=== PATIENT | female | born 1935 | race Two or more races ===

== ENCOUNTER 2022-02-20 19:11 | Inpatient (IN) | payer BC ==
[~2022-02-20] VITALS: Ht 165.1 cm; Wt 74.8 kg
--- NOTE | 2022-02-20 19:23 | NUR ---
[id number] FROM HOME C/O GLF FROM TRIP & LLE PAIN. LLE SHORTENGING & EXTERNAL ROTATION NOTED. -HEAD TRAUMA, -KO. PT AAOX3. TOLERATING R/A WELL WITH NO RESP DISTRESS. SAFETY MEASURES IN PLACE. CONNECTED PT TO POX AND MONITOR.
--- NOTE | 2022-02-20 19:35 | NUR ---
ALONSO [phone] DAUGHTER
[2022-02-20] MEDS ORDERED: ONDANSETRON HCL/PF 4 MG/2 ML VIAL IVP ONE (20:00)
[2022-02-20] MEDS ORDERED: IV NS 0.9% 500 ML BAG IV ONE (20:00)
[2022-02-20] MEDS ORDERED: MORPHINE SULFATE INJ 2 MG/ML DISP.SYRIN IV ONE (20:00)
--- NOTE | 2022-02-20 20:01 | NUR ---
covid swab done
--- NOTE | 2022-02-20 20:10 | NUR ---
MOVE SHEET SUBMITTED.
[2022-02-20] MEDS ORDERED: ONDANSETRON HCL/PF 4 MG/2 ML VIAL ONE (20:19)
[2022-02-20] MEDS ORDERED: MORPHINE SULFATE INJ 4 MG/ML DISP.SYRIN ONE (20:19)
[2022-02-20 20:26] LABS: BASOPHILS % (AUTO) 0.4 % (0.0-2.0); EOSINOPHILS % (AUTO) 0.3 % (0.0-6.0); HEMATOCRIT 31 % (33-45); HEMOGLOBIN 9.9 g/dL (11.5-14.8); LYMPHOCYTES # (AUTO) 0.6 K/uL (0.8-4.8); LYMPHOCYTES % (AUTO) 5.5 % (20.0-44.0); MEAN CORPUSCULAR HGB CONC 32 g/dl (31.0-36.0); MEAN CORPUSCULAR VOLUME 86 fL (82-100); MONOCYTES # (AUTO) 0.8 K/uL (0.1-1.30); NEUTROPHILS # (AUTO) 9.3 K/uL (1.8-8.9); NEUTROPHILS % (AUTO) 86.8 % (43.0-81.0); PLATELET COUNT (AUTO) 410 K/uL (150-450); RED BLOOD CELL COUNT(AUTO) 3.57 MIL/uL (4.0-5.2); WHITE BLOOD COUNT (AUTO) 10.7 K/uL (4.3-11.0)
[2022-02-20 20:50] LABS: CALCIUM, SERUM 8.7 mg/dL (8.5-10.1); CREATININE 0.7 mg/dL (0.6-1.3); POTASSIUM 4.3 mmol/L (3.5-5.1)
[2022-02-20 20:56] LABS: ALBUMIN 1.6 g/dL (3.4-5.0); BILIRUBIN,DIRECT 0.2 mg/dL (0.0-0.2); BILIRUBIN,TOTAL 0.4 mg/dL (0.2-1.0); TOTAL PROTEIN, SERUM 6.4 g/dL (6.4-8.2)
--- NOTE | 2022-02-21 01:43 | NUR ---
FC 16FR INSERTED;PATENT AND INTACT. YELLOW URINE RETURNED
[2022-02-21] MEDS ORDERED: LORAZEPAM INJ 2 MG/ML VIAL IV PRN (02:00)
[2022-02-21] MEDS ORDERED: ONDANSETRON HCL/PF 4 MG/2 ML VIAL IVP PRN (02:00)
[2022-02-21] MEDS ORDERED: Z GUARD REMEDY 4 OZ OINT TP PRN (02:00)
--- NOTE | 2022-02-21 02:19 | NUR ---
PT AWAKE AND ALERT RESTING COMOFRTABLY. DENIES ANY PAIN AT REST. CALL LIGHT WITHIN REACH.
--- NOTE | 2022-02-21 07:53 | NUR ---
BED GIVEN 309-1
[2022-02-21] MEDS ORDERED: CHOL100043 PO (08:01)
[2022-02-21] MEDS ORDERED: PREG200C PO (08:01)
[2022-02-21] MEDS ORDERED: FERR325T23 PO (08:01)
[2022-02-21] MEDS ORDERED: ATOR10TA PO (08:01)
[2022-02-21] MEDS ORDERED: VIT1CAPS9 PO (08:01)
[2022-02-21] MEDS ORDERED: ASCO-340 PO (08:01)
[2022-02-21] MEDS ORDERED: PREG100C PO (08:01)
[2022-02-21] MEDS ORDERED: DULO60CA64 PO (08:01)
[2022-02-21] MEDS ORDERED: LEVO25TA82 PO (08:01)
[2022-02-21] MEDS ORDERED: MULT-447 PO (08:01)
[2022-02-21] MEDS ORDERED: CALC500T52 PO (08:01)
--- NOTE | 2022-02-21 08:11 | NUR ---
REPORT GIVEN TO NARISSA FOR MUSA
[2022-02-21] MEDS ORDERED: PANTOPRAZOLE 40 MG VIAL IV SCH (09:00)
--- NOTE | 2022-02-21 09:04 | NUR ---
SPOKE TO DAUGHTER AND INFORMED PT HAS A TUMOR ON THE SAME SIDE OF THE FRACTURE ONCOLOGIST DOCTOR IS DR SETH [phone] (CELL) HIS OFFICE NUMBER IS [phone] ESTEPHANIE CROWELL
--- NOTE | 2022-02-21 09:55 | NUR ---
PT TRANSPORTED TO MED SURG FLOOR VIA [facility]
--- NOTE | 2022-02-21 10:10 | NUR ---
RECEIVED PATIENT VIA GURNEY FROM ED, A/O X4 WITH LEFT HIP FRACTURE. ON ROOM AIR, TOLERATING WELL. RESPONSIVE AND COOPERATIVE, WITH SALINE LOCK AT LEFT ARM. WITH BARBA CATHETER DRAINING WELL. INITIAL VITALS TAKEN AND RECORDED. KEPT COMFORTABLE, CARE RENDERED. TO MONITOR.
[2022-02-21] MEDS: IV NS 0.9% 1,000 ML IV PRN (11:01)
[2022-02-21] MEDS: ENOXAPARIN SODIUM 40 MG/0.4 ML DISP.SYRIN SQ SCH (11:02)
[2022-02-21 12:00] VITALS: BP 128/63
[2022-02-21 12:12] LABS: IRON, SERUM 13 ug/dl (50-175); TOTAL IRON BINDING CAPACITY 125 ug/dl (250-450)
[2022-02-21 12:48] LABS: HDL CHOLESTEROL 26 mg/dL (40-60); LDL 41 mg/dL (0-99); THYROID STIMULATING HORMONE 0.982 uIU/mL (0.358-3.74); TRIGLYCERIDES 64 mg/dL (30-150)
[2022-02-21 13:23] LABS: CHOLESTEROL 78 mg/dL (<200)
[2022-02-21 13:35] LABS: FERRITIN 4589 ng/mL (8-388)
[2022-02-21 13:55] LABS: MAGNESIUM 1.9 mg/dL (1.8-2.4); PHOSPHORUS 4.3 mg/dL (2.5-4.9)
[2022-02-21] MEDS ORDERED: ANESTHESIA TRAY IN PYXIS 1 EA TRAY MC ONE (14:19)
[2022-02-21] MEDS: MORPHINE SULFATE INJ 2 MG/ML DISP.SYRIN IV PRN ×2 (14:41→19:26)
[2022-02-21 16:00] VITALS: BP 121/60
--- NOTE | 2022-02-21 18:23 | NUR ---
RN CLOSING NOTE PATIENT IN BED, AWAKE. PATIENT IS ABLE TO MAKE NEEDS KNOWN, A/O X 4. PATIENT ON RA, TOLERATING WELL. NO SOB NOTED, NO RESPIRATORY DISTRESS. WITH ONGOING IV PATENT AND INTACT, SALINE LOCKED, FLUSHING WELL. SAFETY MEASURES IN PLACE: BED LOCKED AND IN LOWEST POSITION, CALL LIGHT WITHIN REACH, SIDE RAILS UP. WILL ENDORSE TO RODEO RIDER NURSE FOR MUSA.
--- NOTE | 2022-02-21 18:30 | NUR ---
RN MS NOTES PT IN BED, RESTING, COMPLAINS OF PAIN ON MOVEMENT, REFUSES PAIN MEDS AT THIS TIME, SAYS MAYBE BEFORE SHE SLEEPS, PER CHARGE NURSE, DR. MOREL ORDERED CASE MANAGEMENT CONSULT FOR TRANSFER TO [facility] FOR [facility] DUE TO COMPLICATED SURGERY GIVEN PT'S HISTORY, KEPT PT COMFORTABLE, F/C IN PLACE, DRAINING WELL, IV FLUIDS INFUSING WELL.
--- NOTE | 2022-02-21 19:38 | NUR ---
RN MS NOTES PT IN BED, PT RECEIVED GRIMACING IN PAIN REPORTING 10/10 PAIN PRN MORPHINE GIVEN AND TOLERATED WELL. PER DAY SHIFT NURSE, DR. MOREL ORDERED CASE MANAGEMENT CONSULT FOR TRANSFER TO [facility] FOR [facility] DUE TO COMPLICATED SURGERY GIVEN PT'S HISTORY, F/C IN PLACE, DRAINING WELL, IV FLUIDS INFUSING WELL. ALL SAFETY MEASURES MAINTAINED AND FOLLOWED [facility] FOR SAFETY.
[2022-02-21 22:38] VITALS: BP 139/68
--- NOTE | 2022-02-22 06:34 | NUR ---
RN MS CLOSING NOTES PT IN BED, PT ASLEEP EASILY WOKEN UP. PRN PAIN MANAGEMENT PROVIDED NEEDED..GIVEN PT'S HISTORY PT FOR HLOC TRANSFER TO [facility] FOR L HIP FX. F/C IN PLACE, DRAINING WELL, 440 TOTAL DURING SHIFT. IV FLUIDS INFUSING WELL. ALL SAFETY MEASURES MAINTAINED AND FOLLOWED [facility] FOR SAFETY.
[2022-02-22 06:57] LABS: EOSINOPHILS % (AUTO) 0.2 % (0.0-6.0); HEMATOCRIT 31 % (33-45); HEMOGLOBIN 9.7 g/dL (11.5-14.8); LYMPHOCYTES # (AUTO) 0.9 K/uL (0.8-4.8); LYMPHOCYTES % (AUTO) 7.2 % (20.0-44.0); MEAN CORPUSCULAR HGB CONC 32 g/dl (31.0-36.0); MEAN CORPUSCULAR VOLUME 87 fL (82-100); MONOCYTES # (AUTO) 0.9 K/uL (0.1-1.30); MONOCYTES % (AUTO) 7.7 % (2.0-12.0); NEUTROPHILS # (AUTO) 10.3 K/uL (1.8-8.9); NEUTROPHILS % (AUTO) 84.9 % (43.0-81.0); PLATELET COUNT (AUTO) 402 K/uL (150-450); RED BLOOD CELL COUNT(AUTO) 3.53 MIL/uL (4.0-5.2); WHITE BLOOD COUNT (AUTO) 12.2 K/uL (4.3-11.0)
[2022-02-22 07:14] LABS: T4 (THYROXINE) 7.2 ug/dL (4.7-13.3)
[2022-02-22 07:20] LABS: ALANINE AMINOTRANSFERASE 12 U/L (12-78); ALKALINE PHOSPHATASE 140 U/L (46-116); ASPARTATE AMINOTRANSFERASE 17 U/L (15-37); BILIRUBIN,TOTAL 0.5 mg/dL (0.2-1.0); CALCIUM, SERUM 8.5 mg/dL (8.5-10.1); CARBON DIOXIDE 28 mmol/L (21-32); CHLORIDE 96 mmol/L (98-107); CREATININE 0.4 mg/dL (0.6-1.3); GLUCOSE 127 mg/dL (74-106); MAGNESIUM 1.9 mg/dL (1.8-2.4); PHOSPHORUS 3.7 mg/dL (2.5-4.9); POTASSIUM 4.1 mmol/L (3.5-5.1); SODIUM SERUM 131 mmol/L (136-145); THYROID STIMULATING HORMONE 0.781 uIU/mL (0.358-3.74); TOTAL PROTEIN, SERUM 6.2 g/dL (6.4-8.2); UREA NITROGEN, BLOOD 11 mg/dL (7-18)
[2022-02-22 08:00] VITALS: BP 146/82
[2022-02-22] MEDS: PANTOPRAZOLE 40 MG TABLET.DR PO SCH (08:38)
[2022-02-22] MEDS: ENOXAPARIN SODIUM 40 MG/0.4 ML DISP.SYRIN SQ SCH (08:40)
[2022-02-22] MEDS ORDERED: Medication Not On Formulary EA (Vit A/Vit C/Vit E/Zinc/Copper (Preservision Areds Softge PO SCH (09:00)
[2022-02-22] MEDS: FERROUS SULFATE (325 MG) 325 MG/TAB TABLET PO SCH (09:17)
[2022-02-22] MEDS: DULOXETINE HCL 30 MG CAPSULE.DR PO SCH (09:17)
[2022-02-22] MEDS: ASCORBIC ACID 500 MG TABLET PO SCH (09:18)
[2022-02-22] MEDS: CALCIUM CARBONATE (1250) 500 MG TABLET PO SCH (09:18)
[2022-02-22] MEDS: LEVOTHYROXINE SODIUM 25 MCG TABLET PO SCH (09:18)
[2022-02-22] MEDS: CHOLECALCIFEROL 1,000 UNIT TABLET (VIT D3) PO SCH (09:18)
[2022-02-22] MEDS: MULTIVITAMIN/LUTEIN/MINERALS 1 TAB PO SCH (09:28)
[2022-02-22] MEDS: PREGABALIN 100 MG CAPSULE PO SCH ×2 (09:29→17:09)
--- NOTE | 2022-02-22 09:56 | NUR ---
PT AWAKE IN BED, ALERT AND ORIENTED, ABLE TO VERBALIZED NEEDS. ON ROOM AIR, TOLERATING WELL. NO SIGNS OF RESPIRATORY/CARDIAC DISTRESS NOTED. INITIAL VITALS TAKEN AND RECORDED, STABLE. F/C IN PLACE, PATENT AND DRAINING WELL. IV LINE WAS LEAKING, WILL INSERT ANOTHER IV SITE. KEPT COMFORTABLE. ALL SAFETY MEASURES MAINTAINED AND FOLLOWED [facility] E[facility]ATED FOR SAFETY.WILL MONITOR.
[2022-02-22 11:07] LABS: *SPE A/G RATIO 0.5 (0.7-1.7); *SPE ALPHA-1-GLOBULIN 0.6 g/dL (0.0-0.4); *SPE ALPHA-2-GLOBULIN 1.3 g/dL (0.4-1.0); *SPE BETA GLOBULIN 0.8 g/dL (0.7-1.3); *SPE M-SPIKE Not Observed g/dL (Not Observed)
[2022-02-22 11:30] LABS: ALBUMIN 1.4 g/dL (3.4-5.0)
--- NOTE | 2022-02-22 11:59 | NUR ---
RN MS NOTES DR. ORDONEZ INFORMED OF PT'S LATEST ALBUMIN AND WBC RESULT, UA ORDERED BY MD, NOTED AND CARRIED OUT.
[2022-02-22 13:42] LABS: BILIRUBIN,URINE NEGATIVE (NEGATIVE); COLOR,URINE DARK YELLOW (YELLOW); LEUKOCYTE ESTERASE ,URINE SMALL (NEGATIVE); NITRITE, URINE POSITIVE (NEGATIVE); PROTEIN,URINE TRACE mg/dl (NEGATIVE); UGLUCOSE NEGATIVE (NEGATIVE)
[2022-02-22 14:35] LABS: BACTERIA,URINE Many /HPF (None Seen); SQUAMOUS EPITHELIAL CELL,UR Few /HPF (None Seen); WBC,URINE 21-50 /HPF (0-3)
--- NOTE | 2022-02-22 15:42 | NUR ---
RN MS NOTES DR. ORDONEZ INFORMED OF PT'S UA RESULT, NEW ORDER FOR ROCEPHIN IV DAILY RECEIVED, PT RESTING IN BED, NO COMPLAINT AT THIS TIME, IV FLUIDS INFUSING WELL.
[2022-02-22 16:00] VITALS: BP 127/62
[2022-02-22] MEDS ORDERED: CEFTRIAXONE 1 G in IV D5W 50 ML IV SCH (17:00)
[2022-02-22] MEDS: ATORVASTATIN 10 MG TABLET PO SCH (17:09)
[2022-02-22] MEDS: IV NS 0.9% 1,000 ML IV PRN (17:47)
--- NOTE | 2022-02-22 18:11 | NUR ---
CLOSING NOTES PT AWAKE IN BED, ALERT AND ORIENTED, ABLE TO VERBALIZED NEEDS. ON ROOM AIR, TOLERATING WELL. NO SIGNS OF RESPIRATORY/CARDIAC DISTRESS NOTED. VITALS STABLE. F/C IN PLACE, PATENT AND DRAINING WELL. WITH NEW IV LINE AT LEFT LOWER ARM INFUSING WELL. KEPT COMFORTABLE. ALL DUE MEDS WERE GIVEN. OFFERED PAIN MEDICATION HOWEVER PATIENT KEEPS ON REFUSING STATING PAIN IS TOLERABLE. ALL SAFETY MEASURES MAINTAINED AND FOLLOWED [facility] ELEVATED FOR SAFETY.WILL MONITOR.
--- NOTE | 2022-02-22 19:30 | NUR ---
MS RN OPENING NOTES RECEIVED PATIENT LYING IN BED, HOB ELEVATED. A/O X4. BREATHING EVEN AND NON-LABORED ON ROOM AIR. NOT IN APPARENT DISTRESS. VERBALIZED HAVING MILD TO MODERATE PAIN ON HER LEFT HIP BUT REFUSED PRN PAIN MEDS. RE-POSITIONED AND OFFLOADED LEFT HIP. HAS LEFT FOREARM IV ACCESS #22G WITH NS RUNNING AT 75 ML/HR. NO S/S OF INFILTRATION NOTED. HAS INDWELLING BARBA CATHETER DRAINING SLIGHTLY CLOUDY, DARK YELLOW URINE TO BAG BY GRAVITY. SAFETY PRECAUTIONS IN PLACE: BED LOW AND LOCKED, SIDE RAILS UP X2, CALL LIGHT WITHIN REACH. WILL CONTINUE POC.
[2022-02-22 20:00] VITALS: BP 148/65
--- NOTE | 2022-02-22 22:10 | NUR ---
MS RN NOTES PATIENT SATURATING AT 87%-89% ON ROOM AIR. PLACED ON 2LPM VIA NASAL CANULA. SPO2 INCREASED TO 95%
[2022-02-23 06:01] LABS: BASOPHILS % (AUTO) 0.1 % (0.0-2.0); EOSINOPHILS % (AUTO) 0.5 % (0.0-6.0); HEMATOCRIT 30 % (33-45); HEMOGLOBIN 9.8 g/dL (11.5-14.8); LYMPHOCYTES % (AUTO) 8.4 % (20.0-44.0); MEAN CORPUSCULAR HGB CONC 33 g/dl (31.0-36.0); MEAN CORPUSCULAR VOLUME 85 fL (82-100); MONOCYTES % (AUTO) 8.3 % (2.0-12.0); NEUTROPHILS # (AUTO) 10.2 K/uL (1.8-8.9); NEUTROPHILS % (AUTO) 82.7 % (43.0-81.0); PLATELET COUNT (AUTO) 406 K/uL (150-450); RED BLOOD CELL COUNT(AUTO) 3.53 MIL/uL (4.0-5.2); WHITE BLOOD COUNT (AUTO) 12.3 K/uL (4.3-11.0)
--- NOTE | 2022-02-23 06:19 | NUR ---
MS RN CLOSING NOTES PATIENT IN BED ASLEEP, EASY TO AROUSE. A/O X4. ABLE TO VERBALIZE NEEDS. CURRENTLY NPO, SCHEDULED FOR LEFT HIP ORIF AT 1100. ON O2 AT 2 LPM VIA NASAL CANULA, SATURATING AT 95%-97%. NO SOB OR NOTED. NOT IN ACUTE DISTRESS. DENIES PAIN AT THIS TIME. AFEBRILE. HAS LEFT FOREARM IV ACCESS #22G WITH NS RUNNING AT 75 ML/HR. INTACT, PATENT AND FLUSHING. URINE OUTPUT OF 1200 ML, DARK YELLOW AND CLOUDY. ALL NEEDS ATTENDED AND ANTICIPATED. SAFETY PRECAUTIONS MAINTAINED. WILL ENDORSE TO NEXT SHIFT FOR MUSA.
[2022-02-23 07:10] LABS: CALCIUM, SERUM 8.1 mg/dL (8.5-10.1); CARBON DIOXIDE 28 mmol/L (21-32); CHLORIDE 95 mmol/L (98-107); CREATININE 0.4 mg/dL (0.6-1.3); GLUCOSE 142 mg/dL (74-106); MAGNESIUM 1.8 mg/dL (1.8-2.4); PHOSPHORUS 2.9 mg/dL (2.5-4.9); POTASSIUM 3.7 mmol/L (3.5-5.1); SODIUM SERUM 131 mmol/L (136-145); UREA NITROGEN, BLOOD 10 mg/dL (7-18)
--- NOTE | 2022-02-23 07:40 | NUR ---
PATIENT IN BED, NOT IN ANY APPARENT RESPIRATORY DISTRESS. NPO STATUS MAINTAINED. ENDORSED PATIENT TO DAYSHIFT NURSE FOR MUSA.
[2022-02-23] MEDS: IV NS 0.9% 1,000 ML IV PRN (07:41)
[2022-02-23 08:00] VITALS: BP 120/88
--- NOTE | 2022-02-23 08:00 | NUR ---
RECEIVED PATIENT IN BED, WITH HOB ELEVATED, ALERT AND ORIENTED X3. ABLE TO MAKE NEEDS KNOWN. AFEBRILE AND NOT ON ANY FORM OF ACUTE DISTRESS. ON O2 INHALATION VIA NASAL CANNULA AT 2LPM. WITH INTACT BARBA CATHETER DRAINING WELL WITH YELLOW URINE OUTPUT, NO HEMATURIA OR SEDIMENTS NOTED. WITH IV ACCESS ON LEFT FOREARM 226 INFUSING WITH NS AT 75ML/HR. SAFETY MEASURES IN PLACE. KEPT BED IN LOCKED AND IN LOW POSITION TO REDUCE INJURY. SIDE RAILS UP. ADVISED TO USE THE CALL LIGHT WHEN IN NEED OF ASSISTANCE.
[2022-02-23] MEDS: ENOXAPARIN SODIUM 40 MG/0.4 ML DISP.SYRIN SQ SCH (09:00)
[2022-02-23] MEDS: FERROUS SULFATE (325 MG) 325 MG/TAB TABLET PO SCH (09:12)
[2022-02-23] MEDS: MULTIVITAMIN/LUTEIN/MINERALS 1 TAB PO SCH (09:12)
[2022-02-23] MEDS: CALCIUM CARBONATE (1250) 500 MG TABLET PO SCH (09:12)
[2022-02-23] MEDS: DULOXETINE HCL 30 MG CAPSULE.DR PO SCH (09:12)
[2022-02-23] MEDS: PREGABALIN 100 MG CAPSULE PO SCH ×2 (09:15→17:32)
[2022-02-23] MEDS: CHOLECALCIFEROL 1,000 UNIT TABLET (VIT D3) PO SCH (09:15)
[2022-02-23] MEDS: ASCORBIC ACID 500 MG TABLET PO SCH (09:15)
[2022-02-23] MEDS: PANTOPRAZOLE 40 MG TABLET.DR PO SCH (09:15)
[2022-02-23] MEDS: LEVOTHYROXINE SODIUM 25 MCG TABLET PO SCH (09:15)
[2022-02-23] MEDS: ACETAMINOPHEN 325 MG TABLET PO PRN (10:04)
--- NOTE | 2022-02-23 10:11 | NUR ---
RN NOTE PATIENT IS C/O BACK PAIN 06/30. CALLED OR STAFF TO ASK IF STILL OKAY TO GIVE ORAL PAIN MEDICATION AND SAID THAT PROCEDURE WAS MOVED AT 12NN AND THAT PAIN PILL CAN STILL BE GIVEN. GAVE MEDICATION ORDERED.
[2022-02-23] MEDS ORDERED: BUPIVACAINE 0.25% 75 MG/30 ML VIAL ONE (11:32)
--- NOTE | 2022-02-23 11:40 | NUR ---
RN NOTE PATIENT WAS PICKED UP BY OR STAFF FOR SCHEDULED PROCEDURE, LEFT IN STABLE CONDITION. NOT IN ANY FORM OF DISTRESS.
[2022-02-23] MEDS ORDERED: FENTANYL PF 100MCG/2ML AMPUL ONE (11:49)
[2022-02-23] MEDS ORDERED: MIDAZOLAM HCL 2 MG/2ML VIAL ONE (11:50)
[2022-02-23] MEDS ORDERED: ROCURONIUM BROMIDE 50 MG/5 ML ONE (11:50)
[2022-02-23 15:20] LABS: HEMOGLOBIN 10.6 g/dL (11.5-14.8)
--- NOTE | 2022-02-23 15:41 | NUR ---
MANUFACTURING CHIEF ENGINEER NOTE PATIENT CAME BACK FROM OR S/P L HIP ORIF, AWAKE, ALERT AND ORIENTED, IN STABLE CONDITION AND NOT IN ANY FORM OF ACUTE DISTRESS. POST SURGERY ORDERS NOTED AND CARRIED OUT. INITIAL VITALS TAKEN AND FOLLOWS: BP- 106/58, P- 120, R- 17, T- 97.5, O2 97% ON 3LPM VIA NASAL CANNULA. WITH DRESSING ON LEFT HIP X2 SITES, MARKED BLEEDING SITES WITH PEN. WILL MONITOR FOR S/SX. OF BLEEDING. DAUGHTER AT BEDSIDE. NO C/O PAIN OR DISCOMFORT. SAFETY MEASURES IN PLACE. BED IN LOCKED AND LOWEST POSITION. SIDE RAILS UP. ADVISED TO USE THE CALL LIGHT.
[2022-02-23] MEDS: ATORVASTATIN 10 MG TABLET PO SCH (17:32)
[2022-02-23 17:45] VITALS: BP 106/49
--- NOTE | 2022-02-23 18:55 | NUR ---
RN CLOSING NOTE PATIENT IN BED, WITH HOB ELEVATED, ALERT AND ORIENTED X3. AFEBRILE AND NOT ON ANY FORM OF ACUTE DISTRESS. BREATHING EVEN AND NON LABORED. NO C/O PAIN OR DISCOMFORT AT THIS TIME OF THE SHIFT. S/P L ORIF, NO BLEEDING NOTED. WITH IV ACCESS ON LEFT FOREARM 22G, INFUSING WITH NS AT 75CC/HR. WITH INTACT BARBA CATHETER, DRAINING WELL WITH YELLOW URINE OUTPUT, NO HEMATURIA OR SEDIMENTS NOTED. MEDICATED ORDERED. OFFERED AND ENCOURAGED FLUIDS TOLERATED. SAFETY MEASURES IN PLACE. KEPT BED IN LOCKED AND IN LOW POSITION TO REDUCE INJURY. SIDE RAILS UP. CALL LIGHT WITHIN EASY REACH. ALL NURSING NEEDS ATTENDED.
--- NOTE | 2022-02-23 19:10 | NUR ---
MS RN NOTE LATEST BP 85/48 WITH HR OF 112/122, PATIENT IS ASYMPTOMATIC AND CLAIMS SHE HAVE SOMETIMES HAVE LOW BP. PATIENT IS ON NS RUNNING ST 75ML/HR. HOSPITALIST GOPI NOTIFIED. LEGS RAIDED AND LOWERED HEAD OF THE BED. WILL ENDORSE ACCORDINGLY.
--- NOTE | 2022-02-23 19:30 | NUR ---
VISCOSITY TESTER OPENING NOTES RECEIVED PATIENT LAYING IN BED ASLEEP, EASY TO AROUSE. A/O X3-4, DROWSY. ON O2 AT 3LPM VIA NASAL CANULA, BREATHING EVEN AND NON-LABORED. NOT IN APPARENT DISTRESS. DENIES PAIN AT THIS TIME. S/P LEFT HIP ORIF, DRESSING C/D/I. HAS LEFT FOREARM IV ACCESS #22G WITH BOLUS NS INFUSING WELL. NO S/S OF INFILTRATION NOTED. HAS INDWELLING BARBA CATHETER DRAINING CLEAR KEERTHI URINE TO BAG BY GRAVITY. SAFETY PRECAUTIONS IN PLACE: BED LOW AND LOCKED, SIDE RAILS UP X2, CALL LIGHT WITHIN REACH. WILL CONTINUE POC.
[2022-02-23 20:00] VITALS: BP 87/59
[2022-02-23] MEDS ORDERED: IV NS 0.9% 1,000 ML IV ONE (20:00)
[2022-02-23] MEDS: ANCEF 1 GM/50 ML D5W IV SCH ×2 (20:17)
[2022-02-23 22:00] VITALS: BP 81/44
--- NOTE | 2022-02-23 22:05 | NUR ---
HEARING INSTRUMENT SPECIALIST NOTES PATIENT STILL HYPOTENSIVE AFTER 500 ML BOLUS OF NS. BP 81/44 NOTIFIED HOSPITALIST JULITA AND ORDERED ANOTHER 250 ML NS BOLUS AND STAT H/H. NOTED AND CARRIED OUT. WILL CONTINUE TO MONITOR BP.
[2022-02-23 22:50] LABS: HEMOGLOBIN 7.8 g/dL (11.5-14.8)
[2022-02-24] VITALS (13 sets, daily range): BP systolic 80–136; BP diastolic 33–65
--- NOTE | 2022-02-24 02:40 | NUR ---
CARBON BLOCKS PRESS OPERATOR NOTES NOTIFIED JULITA ON H/H RESULTS: . ORDERED BT 1 UNIT PRBC. NOTED AND CARRIED OUT. ORDERED TYPE AND SCREEN. AWAITING FOR LAB TO CALL.
[2022-02-24] MEDS: IV NS 0.9% 1,000 ML IV PRN ×2 (03:18→14:58)
[2022-02-24] MEDS: ANCEF 1 GM/50 ML D5W IV SCH ×2 (04:11)
[2022-02-24] MEDS: ACETAMINOPHEN 325 MG TABLET PO PRN (06:26)
--- NOTE | 2022-02-24 06:56 | NUR ---
FISH PACKER CLOSING NOTES PATIENT LAYING COMFORTABLY IN BED. A/O X4 WITH PERIODS OF CONFUSION. ABLE TO VERBALIZE NEEDS. ON O2 AT 2LPM VIA NASAL CANULA. NO SOB OR NOTED. NOT IN ACUTE DISTRESS. NO C/O PAIN OR DISCOMFORT. AFEBRILE. ON TELE MONITOR READING SINUS RHYTHM AT 94 BPM. HAS LEFT FOREARM IV ACCESS #22G WITH NS RUNNING AT 75 ML/HR. INTACT, PATENT AND FLUSHING. CLEAR KEERTHI URINE OUTPUT OF 500 ML. LEFT HIP SURGICAL DRESSING C/D/I. ALL DUE MEDS GIVEN AND NEEDS ATTENDED. ENCOURAGED FLUID INTAKE AND OOB. STILL AWAITING FOR BLOOD. SAFETY PRECAUTIONS MAINTAINED. WILL ENDORSE TO NEXT SHIFT FOR MUSA.
[2022-02-24 07:06] LABS: CALCIUM, SERUM 7.3 mg/dL (8.5-10.1); CREATININE 0.6 mg/dL (0.6-1.3); MAGNESIUM 1.7 mg/dL (1.8-2.4); PHOSPHORUS 3.2 mg/dL (2.5-4.9); POTASSIUM 4.2 mmol/L (3.5-5.1)
[2022-02-24 07:20] LABS: BASOPHILS % (AUTO) 0.1 % (0.0-2.0); EOSINOPHILS % (AUTO) 1.6 % (0.0-6.0); HEMATOCRIT 25 % (33-45); HEMOGLOBIN 8.1 g/dL (11.5-14.8); LYMPHOCYTES # (AUTO) 0.6 K/uL (0.8-4.8); LYMPHOCYTES % (AUTO) 5.2 % (20.0-44.0); MEAN CORPUSCULAR HGB CONC 33 g/dl (31.0-36.0); MEAN CORPUSCULAR VOLUME 86 fL (82-100); MONOCYTES # (AUTO) 0.5 K/uL (0.1-1.30); MONOCYTES % (AUTO) 4.9 % (2.0-12.0); NEUTROPHILS # (AUTO) 9.6 K/uL (1.8-8.9); NEUTROPHILS % (AUTO) 88.2 % (43.0-81.0); PLATELET COUNT (AUTO) 344 K/uL (150-450); RED BLOOD CELL COUNT(AUTO) 2.85 MIL/uL (4.0-5.2); WHITE BLOOD COUNT (AUTO) 10.9 K/uL (4.3-11.0)
--- NOTE | 2022-02-24 07:35 | NUR ---
AUTOMATIC TOE LASTER OPENING NOTES RECEIVED PATIENT IN BED AWAKE AND ABLE TO MAKE NEEDS KNOWN . A/O X3-4, FARSI SPEAKING . ON O2 AT 3LPM VIA NASAL CANULA, NO SOB OR DISTRESS NOTED . DENIES PAIN AT THIS TIME. S/P LEFT HIP ORIF, DRESSING C/D/I. HAS LEFT FOREARM IV ACCESS #22G WITH BOLUS NS INFUSING WELL. NO S/S OF INFILTRATION NOTED. HAS INDWELLING BARBA CATHETER DRAINING CLEAR KEERTHI URINE TO BAG BY GRAVITY. SAFETY PRECAUTIONS IN PLACE: BED LOW AND LOCKED, SIDE RAILS UP X2, CALL LIGHT WITHIN REACH. WILL CONTINUE POC.
[2022-02-24] MEDS: PREGABALIN 100 MG CAPSULE PO SCH ×2 (09:02→18:04)
[2022-02-24] MEDS: PANTOPRAZOLE 40 MG TABLET.DR PO SCH (09:03)
[2022-02-24] MEDS: DULOXETINE HCL 30 MG CAPSULE.DR PO SCH (09:03)
[2022-02-24] MEDS: ASCORBIC ACID 500 MG TABLET PO SCH (09:03)
[2022-02-24] MEDS: CALCIUM CARBONATE (1250) 500 MG TABLET PO SCH (09:03)
[2022-02-24] MEDS: FERROUS SULFATE (325 MG) 325 MG/TAB TABLET PO SCH (09:03)
[2022-02-24] MEDS: CHOLECALCIFEROL 1,000 UNIT TABLET (VIT D3) PO SCH (09:03)
[2022-02-24] MEDS: MULTIVITAMIN/LUTEIN/MINERALS 1 TAB PO SCH (09:03)
[2022-02-24] MEDS: LEVOTHYROXINE SODIUM 25 MCG TABLET PO SCH (09:04)
[2022-02-24] MEDS ORDERED: MAGNESIUM OXIDE 400 MG TABLET PO ONE (10:00)
--- NOTE | 2022-02-24 10:00 | NUR ---
RN NOTES PATIENT NOTED WITH LOW MG LEVEL AND MG IV ORDERED
[2022-02-24] MEDS: ENOXAPARIN SODIUM 40 MG/0.4 ML DISP.SYRIN SQ SCH (10:08)
[2022-02-24] MEDS ORDERED: IV NS 0.9% 500 ML IV ONE ×2 (10:30)
[2022-02-24] MEDS: Magnesium 1GM/D5W 100ML PREMIX 100 ML IV SCH ×2 (10:50→11:44)
--- NOTE | 2022-02-24 15:41 | NUR ---
RN NOTES BLOOD TRANSFUSION STARTED AND MONITORED FOR ANY CHANGES
--- NOTE | 2022-02-24 15:55 | NUR ---
RN NOTES BLOOD TRANSFUSION ON GOING AND V/S TAKEN AND NO REACTION NOTED . PAT IS STABLE
--- NOTE | 2022-02-24 16:25 | NUR ---
RN NOTES PATIENT CONTINUE WITH BLOOD TRANSFUSION , V/S TAKEN AND NO ADVERSE REACTION NOTED
--- NOTE | 2022-02-24 16:55 | NUR ---
RN NOTES BLOOD TRANSFUSION ON GOING AND NO ADVERSE REACTION NOTED , V/S WITHIN NORMAL LIMITS
--- NOTE | 2022-02-24 17:55 | NUR ---
RN NOTES CONTINUE WITH BLOOD TRANSFUSION AND NO ADVERSE REACTION NOTED , V/A WITHIN NORMAL LIMITS
[2022-02-24] MEDS: ATORVASTATIN 10 MG TABLET PO SCH (18:04)
--- NOTE | 2022-02-24 19:25 | NUR ---
DETONATOR ASSEMBLER CLOSING NOTES PATIENT IN BED AWAKE AND ABLE TO MAKE NEEDS KNOWN . A/O X3-4, FARSI SPEAKING . NOW ON ROOM AIR AND TOLERATED WELL , NO SOB OR DISTRESS NOTED . DENIES PAIN AT THIS TIME. S/P LEFT HIP ORIF, DRESSING C/D/I. HAS LEFT FOREARM IV ACCESS #22G WITH BOLUS NS INFUSING WELL. MIDLINE #18 G INSERTED ORDERED , PATIENT WITH HGB OF 8.1 AND BP OF 80/33 AND SENSOR OPERATOR BATACLAN ORDERED TO GIVE BULOS 500 ML AND BLOOD TRANFUSION OF PRBC , BLOOD TRANFUSION GIVEN ORDERED AND NO REACTION NOTED , V/S WITHIN NORMAL LIMITS , NO S/S OF INFILTRATION NOTED. HAS INDWELLING BARBA CATHETER DRAINING CLEAR KEERTHI URINE TO BAG BY GRAVITY. SAFETY PRECAUTIONS IN PLACE: BED LOW AND LOCKED, SIDE RAILS UP X2, CALL LIGHT WITHIN REACH. WILL CONTINUE POC.
--- NOTE | 2022-02-24 19:25 | NUR ---
RN OPENING NOTE RECEIVED PATIENT IN BED; AWAKE, ALERT AND ORIENTED X 4. ON O2 INHALATION @ 2 LPM VIA NASAL CANNULA; TOLERATING WELL. BREATHING EVEN AND NONLABORED. NOT IN ACUTE DISTRESS. DENIES ANY PAIN OR DISCOMFORT AT THIS TIME. WITH MIDLINE @ RIGHT UPPER ARM 18g: PATENT, INTACT AND SALINE LOCKED. WITH IV ACCESS ON LEFT FOREARM 22g: PATENT AND INTACT RUNNING WITH NS 1L REGULATED @ 75 ML/HR; FLUSHES WELL. WITH BARBA CATHETER IN PLACE DRAINING TO YELLOW URINE OUTPUT. ON TELEMETRY MONITORING: SINUS TACHYCARDIA HR-118 BPM. ABLE TO MAKE NEEDS KNOWN. SAFETY MEASURES IMPLEMENTED: CALL LIGHT AND TABLE WITHIN REACH, SIDE RAILS UP X 2, BED IN LOWEST LOCKED POSITION. WILL CONTINUE PLAN OF CARE.
[2022-02-25] VITALS: BP 127/56
[2022-02-25] MEDS: ACETAMINOPHEN 325 MG TABLET PO PRN ×2 (03:02→14:47)
--- NOTE | 2022-02-25 03:02 | NUR ---
RN NOTE PATIENT C/O HEADACHE. PRN TYLENOL 650 MG GIVEN PO ORDERED. WILL CONTINUE TO MONITOR AND REASSESS PT.
[2022-02-25] MEDS: IV NS 0.9% 1,000 ML IV PRN (06:15)
[2022-02-25 06:22] LABS: BASOPHILS % (AUTO) 0.1 % (0.0-2.0); EOSINOPHILS % (AUTO) 0.5 % (0.0-6.0); HEMATOCRIT 27 % (33-45); HEMOGLOBIN 9.1 g/dL (11.5-14.8); LYMPHOCYTES # (AUTO) 0.9 K/uL (0.8-4.8); MEAN CORPUSCULAR HGB CONC 33 g/dl (31.0-36.0); MEAN CORPUSCULAR VOLUME 86 fL (82-100); MONOCYTES % (AUTO) 9.4 % (2.0-12.0); NEUTROPHILS # (AUTO) 9.1 K/uL (1.8-8.9); PLATELET COUNT (AUTO) 323 K/uL (150-450); WHITE BLOOD COUNT (AUTO) 11.1 K/uL (4.3-11.0)
[2022-02-25 06:45] LABS: CALCIUM, SERUM 7.3 mg/dL (8.5-10.1); CREATININE 0.6 mg/dL (0.6-1.3); MAGNESIUM 1.9 mg/dL (1.8-2.4); PHOSPHORUS 2.4 mg/dL (2.5-4.9); POTASSIUM 3.5 mmol/L (3.5-5.1)
--- NOTE | 2022-02-25 06:45 | NUR ---
RN CLOSING NOTE PATIENT IN BED; AWAKE, A/O X 4. ON O2 INHALATION @ 2 LPM VIA NASAL CANNULA; TOLERATING WELL. BREATHING EVEN AND NONLABORED. NOT IN ACUTE DISTRESS. DENIES ANY PAIN OR DISCOMFORT AT THIS TIME. WITH MIDLINE @ RIGHT UPPER ARM 18g: PATENT, INTACT AND SALINE LOCKED. WITH IV ACCESS ON LEFT FOREARM 22g: PATENT AND INTACT RUNNING WITH NS 1L REGULATED @ 75 ML/HR; FLUSHES WELL. WITH BARBA CATHETER IN PLACE DRAINING TO YELLOW URINE OUTPUT. ON TELEMETRY MONITORING: SINUS TACHYCARDIA HR-94 BPM. SAFETY MEASURES MAINTAINED: CALL LIGHT AND TABLE WITHIN REACH, SIDE RAILS UP X 2, BED IN LOWEST LOCKED POSITION. ENDORSED TO VASILE WORKMAN FOR MUSA.
--- NOTE | 2022-02-25 07:33 | NUR ---
JIG AND FIXTURE BUILDER APPRENTICE OPENING NOTES RECEIVED PATIENT IN BED AWAKE AND ABLE TO MAKE NEEDS KNOWN . A/O X3-4, FARSI SPEAKING . ROOM AIR AND TOLERATED WELL , NO SOB OR DISTRESS NOTED . DENIES PAIN AT THIS TIME. TELE MONITOR WITH SR AND HR OF 94BPM , S/P LEFT HIP ORIF, DRESSING C/D/I. HAS LEFT FOREARM IV ACCESS #22G WITH BOLUS NS INFUSING WELL. NO S/S OF INFILTRATION NOTED. SB MIDLINE #18 G INTACT . HAS INDWELLING BARBA CATHETER DRAINING CLEAR KEERTHI URINE TO BAG BY GRAVITY. SAFETY PRECAUTIONS IN PLACE: BED LOW AND LOCKED, SIDE RAILS UP X2, CALL LIGHT WITHIN REACH. WILL CONTINUE POC.
[2022-02-25 08:00] VITALS: BP 121/59
[2022-02-25] MEDS: LEVOTHYROXINE SODIUM 25 MCG TABLET PO SCH (09:13)
[2022-02-25] MEDS: MULTIVITAMIN/LUTEIN/MINERALS 1 TAB PO SCH (09:13)
[2022-02-25] MEDS: CALCIUM CARBONATE (1250) 500 MG TABLET PO SCH (09:13)
[2022-02-25] MEDS: CHOLECALCIFEROL 1,000 UNIT TABLET (VIT D3) PO SCH (09:13)
[2022-02-25] MEDS: PREGABALIN 100 MG CAPSULE PO SCH ×2 (09:13→18:28)
[2022-02-25] MEDS: ASCORBIC ACID 500 MG TABLET PO SCH (09:14)
[2022-02-25] MEDS: FERROUS SULFATE (325 MG) 325 MG/TAB TABLET PO SCH (09:14)
[2022-02-25] MEDS: DULOXETINE HCL 30 MG CAPSULE.DR PO SCH (09:14)
[2022-02-25] MEDS: PANTOPRAZOLE 40 MG TABLET.DR PO SCH (09:14)
[2022-02-25] MEDS: ENOXAPARIN SODIUM 40 MG/0.4 ML DISP.SYRIN SQ SCH (09:16)
[2022-02-25] MEDS: CEFTRIAXONE 1 G in IV D5W 50 ML IV SCH (09:33)
[2022-02-25] MEDS ORDERED: K PHOS NEUTRAL 250 MG TABLET PO ONE ×2 (12:00→15:00)
[2022-02-25 16:00] VITALS: BP 128/59
[2022-02-25] MEDS: ATORVASTATIN 10 MG TABLET PO SCH (18:29)
--- NOTE | 2022-02-25 19:02 | NUR ---
MANUFACTURING TECH CLOSING NOTES PATIENT IN BED AWAKE AND ABLE TO MAKE NEEDS KNOWN . A/O X3-4, FARSI SPEAKING . ROOM AIR AND TOLERATED WELL , NO SOB OR DISTRESS NOTED . DENIES PAIN AT THIS TIME. TELE MONITOR WITH SR AND HR OF 94BPM , S/P LEFT HIP ORIF, DRESSING C/D/I. HAS LEFT FOREARM IV ACCESS #22G WITH BOLUS NS INFUSING WELL. NO S/S OF INFILTRATION NOTED. SB MIDLINE #18 G INTACT . ALL DUE MEDS ORDERED GIVEN , BARBA CATHETER WAS D/C TODAY AND WITH 1200 CC OUPUT , CHANGED TO PUREWICK . SAFETY PRECAUTIONS IN PLACE: BED LOW AND LOCKED, SIDE RAILS UP X2, CALL LIGHT WITHIN REACH. ENDORSED TO NEXT SHIFT
--- NOTE | 2022-02-25 19:42 | NUR ---
RN OPENING NOTE PATIENT AWAKE IN BED. A/OX4. NO S/S OF DISTRESS, BREATHING WITHOUT DIFFICULTY ON 2L NC. LFA #22 SL AND SB MIDLINE #18 - BOTH SL INTACT AND PATENT. SAFETY MEASURES IN PLACE: BED LOCKED IN PLACE AND AT LOWEST POSITION, RAILS UP X2, CALL BARNEY WITHIN REACH. WILL CONTINUE TO MONITOR PATIENT.
[2022-02-25 20:00] VITALS: BP 144/74
[2022-02-26] MEDS: MORPHINE SULFATE INJ 2 MG/ML DISP.SYRIN IV PRN (06:04)
--- NOTE | 2022-02-26 06:27 | NUR ---
RN CLOSING NOTE PATIENT AWAKE IN BED. A/OX4. NO S/S OF DISTRESS, BREATHING WITHOUT DIFFICULTY ON 2L NC. LFA #22 SL INTACT AND PATENT; SB MIDLINE #18 SL INTACT AND PATENT. SAFETY MEASURES IN PLACE: BED LOCKED AND AT LOWEST POSITION, RAILS UP X2, CALL BARNEY WITHIN REACH. WILL ENDORSE TO NEXT SHIFT FOR MUSA.
[2022-02-26 07:07] LABS: BASOPHILS % (AUTO) 0.1 % (0.0-2.0); EOSINOPHILS % (AUTO) 0.7 % (0.0-6.0); HEMATOCRIT 28 % (33-45); HEMOGLOBIN 9.3 g/dL (11.5-14.8); LYMPHOCYTES % (AUTO) 7.7 % (20.0-44.0); MEAN CORPUSCULAR HGB CONC 33 g/dl (31.0-36.0); MEAN CORPUSCULAR VOLUME 86 fL (82-100); MONOCYTES % (AUTO) 7.8 % (2.0-12.0); NEUTROPHILS # (AUTO) 10.5 K/uL (1.8-8.9); NEUTROPHILS % (AUTO) 83.7 % (43.0-81.0); PLATELET COUNT (AUTO) 335 K/uL (150-450); WHITE BLOOD COUNT (AUTO) 12.6 K/uL (4.3-11.0)
[2022-02-26 07:13] LABS: CALCIUM, SERUM 7.7 mg/dL (8.5-10.1); CARBON DIOXIDE 30 mmol/L (21-32); CHLORIDE 96 mmol/L (98-107); CREATININE 0.4 mg/dL (0.6-1.3); GLUCOSE 126 mg/dL (74-106); MAGNESIUM 1.9 mg/dL (1.8-2.4); PHOSPHORUS 2.6 mg/dL (2.5-4.9); POTASSIUM 3.3 mmol/L (3.5-5.1); SODIUM SERUM 130 mmol/L (136-145); UREA NITROGEN, BLOOD 9 mg/dL (7-18)
--- NOTE | 2022-02-26 07:35 | NUR ---
MS RN OPENING NOTES RECEIVED PATIENT IN BED AWAKE AND ABLE TO MAKE NEEDS KNOWN . A/O X3-4, FARSI SPEAKING . ROOM AIR AND TOLERATED WELL , NO SOB OR DISTRESS NOTED . DENIES PAIN AND DISCOMFORT AT THIS TIME , S/P LEFT HIP ORIF, DRESSING C/D/I. HAS LEFT FOREARM IV ACCESS #22G WITH BOLUS NS INFUSING WELL. NO S/S OF INFILTRATION NOTED. SB MIDLINE #18 G INTACT . HAS INDWELLING BARBA CATHETER DRAINING CLEAR KEERTHI URINE TO BAG BY GRAVITY. SAFETY PRECAUTIONS IN PLACE: BED LOW AND LOCKED, SIDE RAILS UP X2, CALL LIGHT WITHIN REACH. WILL CONTINUE POC.
[2022-02-26] MEDS: CALCIUM CARBONATE (1250) 500 MG TABLET PO SCH (08:30)
[2022-02-26] MEDS: CHOLECALCIFEROL 1,000 UNIT TABLET (VIT D3) PO SCH (08:30)
[2022-02-26] MEDS: LEVOTHYROXINE SODIUM 25 MCG TABLET PO SCH (08:30)
[2022-02-26] MEDS: PANTOPRAZOLE 40 MG TABLET.DR PO SCH (08:31)
[2022-02-26] MEDS: PREGABALIN 100 MG CAPSULE PO SCH ×2 (08:31→17:15)
[2022-02-26] MEDS: DULOXETINE HCL 30 MG CAPSULE.DR PO SCH (08:31)
[2022-02-26] MEDS: ASCORBIC ACID 500 MG TABLET PO SCH (08:31)
[2022-02-26] MEDS: MULTIVITAMIN/LUTEIN/MINERALS 1 TAB PO SCH (08:31)
[2022-02-26] MEDS: FERROUS SULFATE (325 MG) 325 MG/TAB TABLET PO SCH (08:31)
[2022-02-26] MEDS: ENOXAPARIN SODIUM 40 MG/0.4 ML DISP.SYRIN SQ SCH (08:33)
[2022-02-26] MEDS: CEFTRIAXONE 1 G in IV D5W 50 ML IV SCH (08:51)
[2022-02-26] MEDS: POTASSIUM CHLORIDE 20 MEQ TAB.PRT.SR PO SCH ×2 (09:58→11:06)
[2022-02-26] MEDS: LEVOFLOXACIN 750 MG /D5W 150ML 750 MG in PREMIX 1 EA IV SCH (12:55)
[2022-02-26] MEDS: ATORVASTATIN 10 MG TABLET PO SCH (17:15)
--- NOTE | 2022-02-26 18:41 | NUR ---
MS RN CLOSING NOTES PATIENT IN BED AWAKE AND ABLE TO MAKE NEEDS KNOWN . A/O X3-4, FARSI SPEAKING . ROOM AIR AND TOLERATED WELL , NO SOB OR DISTRESS NOTED . DENIES PAIN AT THIS TIME. , S/P LEFT HIP ORIF, DRESSING C/D/I. HAS LEFT FOREARM IV ACCESS #22G WITH BOLUS NS INFUSING WELL. NO S/S OF INFILTRATION NOTED. SB MIDLINE #18 G INTACT . ALL DUE MEDS ORDERED GIVEN , WITH PUREWICK DRAINING WELL WITH YELLOW COLORED URINE . SEEN BY PT AND UNABLE TO TOLERATE TREATMENT . SAFETY PRECAUTIONS IN PLACE: BED LOW AND LOCKED, SIDE RAILS UP X2, CALL LIGHT WITHIN REACH. ENDORSED TO NEXT SHIFT
[2022-02-26 20:00] VITALS: BP 110/58
--- NOTE | 2022-02-26 20:22 | NUR ---
MS RN OPENING NOTES PATIENT IN BED AWAKE AND ABLE TO MAKE NEEDS KNOWN . A/O X3-4, FARSI SPEAKING . ON 2L NASAL CANNULA TOLERATING WELL. WELL NO SOB OR DISTRESS NOTED . DENIES PAIN AT THIS TIME. S/P LEFT HIP ORIF, DRESSING C/D/I. HAS LEFT FOREARM IV ACCESS #22G WITH BOLUS NS INFUSING WELL. NO S/S OF INFILTRATION NOTED. SB MIDLINE #18 G INTACT WITH PUREWICK DRAINING WELL WITH YELLOW COLORED URINE.SEEN BY PT AND UNABLE TO TOLERATE TREATMENT. SAFETY PRECAUTIONS IN PLACE: BED LOW AND LOCKED, SIDE RAILS UP X2, CALL LIGHT WITHIN REACH.
[2022-02-26] MEDS: ACETAMINOPHEN 325 MG TABLET PO PRN (21:00)
--- NOTE | 2022-02-26 21:06 | NUR ---
RN NOTE PRN TYLENOL GIVEN FOR PAIN TOLERATED WELL.
[2022-02-27] MEDS: MORPHINE SULFATE INJ 2 MG/ML DISP.SYRIN IV PRN ×3 (06:10→17:24)
--- NOTE | 2022-02-27 06:34 | NUR ---
MS RN CLOSING NOTES PATIENT IN BED AWAKE AND ABLE TO MAKE NEEDS KNOWN . A/O X3-4, FARSI SPEAKING. ON 2L NASAL CANNULA TOLERATING WELL. WELL NO SOB OR DISTRESS NOTED . DENIES PAIN AT THIS TIME. S/P LEFT HIP ORIF, DRESSING C/D/I. SB ML 18G S/L. NO S/S OF INFILTRATION NOTED. SB MIDLINE #18 G INTACT WITH PUREWICK DRAINING WELL WITH YELLOW COLORED URINE.SEEN BY PT AND UNABLE TO TOLERATE TREATMENT. SAFETY PRECAUTIONS IN PLACE: BED LOW AND LOCKED, SIDE RAILS UP X2, CALL LIGHT WITHIN REACH. WILL ENDORSE CARE TO DAY SHIFT NURSE.
[2022-02-27 06:37] LABS: BASOPHILS % (AUTO) 0.1 % (0.0-2.0); EOSINOPHILS % (AUTO) 1.4 % (0.0-6.0); HEMATOCRIT 29 % (33-45); HEMOGLOBIN 9.5 g/dL (11.5-14.8); LYMPHOCYTES # (AUTO) 0.9 K/uL (0.8-4.8); LYMPHOCYTES % (AUTO) 9.1 % (20.0-44.0); MEAN CORPUSCULAR HGB CONC 33 g/dl (31.0-36.0); MEAN CORPUSCULAR VOLUME 86 fL (82-100); MONOCYTES % (AUTO) 9.4 % (2.0-12.0); NEUTROPHILS # (AUTO) 8.4 K/uL (1.8-8.9); PLATELET COUNT (AUTO) 342 K/uL (150-450); RED BLOOD CELL COUNT(AUTO) 3.37 MIL/uL (4.0-5.2); WHITE BLOOD COUNT (AUTO) 10.4 K/uL (4.3-11.0)
[2022-02-27 07:33] LABS: CARBON DIOXIDE 32 mmol/L (21-32); CHLORIDE 97 mmol/L (98-107); CREATININE 0.5 mg/dL (0.6-1.3); GLUCOSE 165 mg/dL (74-106); POTASSIUM 4.4 mmol/L (3.5-5.1); SODIUM SERUM 131 mmol/L (136-145); UREA NITROGEN, BLOOD 10 mg/dL (7-18)
[2022-02-27 08:21] VITALS: BP 116/58
[2022-02-27] MEDS: ENOXAPARIN SODIUM 40 MG/0.4 ML DISP.SYRIN SQ SCH (09:44)
[2022-02-27] MEDS: PREGABALIN 100 MG CAPSULE PO SCH ×2 (09:45→17:23)
[2022-02-27] MEDS: LEVOTHYROXINE SODIUM 25 MCG TABLET PO SCH (09:45)
[2022-02-27] MEDS: MULTIVITAMIN/LUTEIN/MINERALS 1 TAB PO SCH (09:46)
[2022-02-27] MEDS: CALCIUM CARBONATE (1250) 500 MG TABLET PO SCH (09:46)
[2022-02-27] MEDS: DULOXETINE HCL 30 MG CAPSULE.DR PO SCH (09:46)
[2022-02-27] MEDS: CHOLECALCIFEROL 1,000 UNIT TABLET (VIT D3) PO SCH (09:46)
[2022-02-27] MEDS: ASCORBIC ACID 500 MG TABLET PO SCH (09:46)
[2022-02-27] MEDS: FERROUS SULFATE (325 MG) 325 MG/TAB TABLET PO SCH (09:46)
[2022-02-27] MEDS: PANTOPRAZOLE 40 MG TABLET.DR PO SCH (09:46)
[2022-02-27] MEDS ORDERED: LEVO750T46 PO (10:52)
[2022-02-27] MEDS ORDERED: APIX2.5T PO (10:52)
[2022-02-27] MEDS ORDERED: DOCU-141 PO (10:52)
[2022-02-27] MEDS ORDERED: HYDR-3972 PO (10:52)
[2022-02-27] MEDS ORDERED: PANT40TA2 PO (10:52)
[2022-02-27] MEDS: LEVOFLOXACIN 750 MG /D5W 150ML 750 MG in PREMIX 1 EA IV SCH (12:00)
[2022-02-27 16:53] VITALS: BP 142/88
[2022-02-27] MEDS: ATORVASTATIN 10 MG TABLET PO SCH (17:23)
--- NOTE | 2022-02-27 18:09 | NUR ---
MS RN CLOSING NOTE PATIENT RECEIVED IN BED AND RESTING. A/O X 4, AND ABLE TO VERBALIZE NEEDS. S/P L-HIP ORIF ON 02/23. SURGICAL SITE KEPT DRY WITH NO S/SX OF BLEEDING, TRAUMA OR INFECTION. PATIENT C/O PAIN TO AFFECTED SITE X2 ON SHIFT. RECEIVED PRN MORPHINE VIA IV PUSH @ 1046 & 1724. MEDICATION EFFECTIVE BOTH TIMES. NO OTHER DISTRESS OBSERVED OR REPORTED ON SHIFT. PATIENT TOLERATED ALL MEALS WELL. CONTINUES TO HAVE PURE-WICK ATTACHED FOR URINARY DRAINAGE WITH OUTPUT OF 100ML CLEAR, YELLOW URINE. PATIENT CONTINUES ON SUPPLEMENTAL OXYGEN 2L VIA NASAL CANNULA FOR COMFORT. IV ACCESS TO LFA AND SB- MIDLINE BOTH REMAIN INTACT AND PATENT. RECEIVED IV ANTIBIOTICS ON SHIFT. TOLERATED WELL WITH NO S/SX OF ADVERSE REACTION OBSERVED OR REPORTED. SAFETY MEASURES IN PLACE WITH BED LOW AND LOCKED. SIDE-RAIL UP X2 WITH CALL LIGHT WITHIN REACH. WILL CONTINUE TO MONITOR.
[2022-02-27 20:00] VITALS: BP 114/52
--- NOTE | 2022-02-28 04:42 | NUR ---
Closing Notes: alert and orientated X4 max assist to be repositioned and cleaned purewick in use d/t incontinence and working left hip dressing CDI Legs swollen S/P ORIF left fem FX slept thru the night
[2022-02-28 08:00] VITALS: BP 115/55
[2022-02-28] MEDS: MORPHINE SULFATE INJ 2 MG/ML DISP.SYRIN IV PRN ×2 (09:25→17:29)
[2022-02-28] MEDS: PANTOPRAZOLE 40 MG TABLET.DR PO SCH (09:46)
[2022-02-28] MEDS: DULOXETINE HCL 30 MG CAPSULE.DR PO SCH (09:46)
[2022-02-28] MEDS: FERROUS SULFATE (325 MG) 325 MG/TAB TABLET PO SCH (09:46)
[2022-02-28] MEDS: MULTIVITAMIN/LUTEIN/MINERALS 1 TAB PO SCH (09:46)
[2022-02-28] MEDS: PREGABALIN 100 MG CAPSULE PO SCH ×2 (09:46→17:28)
[2022-02-28] MEDS: ASCORBIC ACID 500 MG TABLET PO SCH (09:46)
[2022-02-28] MEDS: LEVOTHYROXINE SODIUM 25 MCG TABLET PO SCH (09:46)
[2022-02-28] MEDS: CALCIUM CARBONATE (1250) 500 MG TABLET PO SCH (09:47)
[2022-02-28] MEDS: CHOLECALCIFEROL 1,000 UNIT TABLET (VIT D3) PO SCH (09:47)
[2022-02-28] MEDS: ENOXAPARIN SODIUM 40 MG/0.4 ML DISP.SYRIN SQ SCH (10:38)
[2022-02-28] MEDS: LEVOFLOXACIN 750 MG /D5W 150ML 750 MG in PREMIX 1 EA IV SCH (12:23)
[2022-02-28 16:00] VITALS: BP 127/66
[2022-02-28] MEDS: ATORVASTATIN 10 MG TABLET PO SCH (17:28)
--- NOTE | 2022-02-28 18:21 | NUR ---
MS RN CLOSING NOTE PATIENT RECEIVED IN BED AND AWAKE. CONTINUES TO BE A/O X 4, AND ABLE TO VERBALIZE NEEDS. REMAINS S/P L-HIP ORIF ON 02/23. SURGICAL SITE KEPT DRY WITH NO S/SX OF BLEEDING, TRAUMA OR INFECTION. PATIENT C/O PAIN TO AFFECTED SITE X2 ON SHIFT. RECEIVED PRN MORPHINE VIA IV PUSH @ 0925 & 1729. MEDICATION EFFECTIVE BOTH TIMES. NO OTHER DISTRESS OBSERVED OR REPORTED ON SHIFT. OBSERVED WORKING WITH PT AT BEDSIDE. TOLERATED THERAPY WELL. PATIENT TOLERATED ALL MEALS WELL. PURE-WICK ATTACHED FOR URINARY DRAINAGE WITH OUTPUT OF 1000ML CLEAR, YELLOW URINE. PATIENT CONTINUES ON SUPPLEMENTAL OXYGEN 2L VIA NASAL CANNULA FOR COMFORT. IV ACCESS TO LFA AND SB- MIDLINE BOTH REMAIN INTACT AND PATENT. RECEIVED IV ANTIBIOTICS ON SHIFT. TOLERATED WELL WITH NO S/SX OF ADVERSE REACTION OBSERVED OR REPORTED. SAFETY MEASURES IN PLACE WITH BED LOW AND LOCKED. SIDE-RAIL UP X2 WITH CALL LIGHT WITHIN REACH. WILL CONTINUE TO MONITOR.
[2022-02-28 20:00] VITALS: BP 110/57
--- NOTE | 2022-03-01 06:35 | NUR ---
END OF SHIFT REPORT Patient in bed, Alert Oriented x3. Oxygen sat in high 90's on Oxygen 2L NC, denies sob with exertion. SB midline intact. On IV abx. Afebrile throughout shift. Left hip incision intact, no bleeding, dressing clean and dry. Limited movement LLE, reports pain only when moved. Turned and repositioned. Fall/skin precaution maintained. Will endorse to oncoming RN.
--- NOTE | 2022-03-01 07:26 | NUR ---
MS RN OPENING NOTE RECEIVED PT AWAKE AND RESTING IN BED. PT A/O X3, ABLE TO MAKE NEEDS KNOWN. ON O2 AT 2L/MIN VIA NASAL CANNULA, TOLERATING WELL. NO SOB NOTED. NOT IN ANY SIGN OF RESPIRATORY DISTRESS. IV ACCESS IN SB MIDLINE SALINE LOCK, INTACT AND PATENT. SAFETY MEASURES IN PLACE: BED IN LOWEST AND LOCKED POSITION, SIDE RAILS UPX2, AND CALL LIGHT WITHIN REACH. WILL CONTINUE TO MONITOR PT.
[2022-03-01] MEDS: LEVOTHYROXINE SODIUM 25 MCG TABLET PO SCH (08:17)
[2022-03-01] MEDS: CALCIUM CARBONATE (1250) 500 MG TABLET PO SCH (09:11)
[2022-03-01] MEDS: DULOXETINE HCL 30 MG CAPSULE.DR PO SCH (09:12)
[2022-03-01] MEDS: PREGABALIN 100 MG CAPSULE PO SCH ×2 (09:12→18:34)
[2022-03-01] MEDS: FERROUS SULFATE (325 MG) 325 MG/TAB TABLET PO SCH (09:12)
[2022-03-01] MEDS: MULTIVITAMIN/LUTEIN/MINERALS 1 TAB PO SCH (09:12)
[2022-03-01] MEDS: ASCORBIC ACID 500 MG TABLET PO SCH (09:12)
[2022-03-01] MEDS: CHOLECALCIFEROL 1,000 UNIT TABLET (VIT D3) PO SCH (09:12)
[2022-03-01] MEDS: PANTOPRAZOLE 40 MG TABLET.DR PO SCH (09:13)
[2022-03-01] MEDS: ENOXAPARIN SODIUM 40 MG/0.4 ML DISP.SYRIN SQ SCH (09:13)
[2022-03-01] MEDS: LEVOFLOXACIN 750 MG /D5W 150ML 750 MG in PREMIX 1 EA IV SCH (12:21)
[2022-03-01] MEDS: ATORVASTATIN 10 MG TABLET PO SCH (18:34)
--- NOTE | 2022-03-01 19:10 | NUR ---
RAIL SPECIALIST NOTE PT DISCHARGED TO [facility] IN STABLE CONDITION. PT A/O X3, ABLE TO MAKE NEEDS KNOWN. ON O2 AT 2L/MIN VIA NASAL CANNULA, TOLERATING WELL WITH SPO2 AT 97%. NO SOB NOTED. NOT IN ANY SIGN OF RESPIRATORY DISTRESS. VITAL SIGNS TAKEN, STABLE, AND RECORDED. PHOTOGRAPHS OF SKIN ISSUES TAKEN AND FILED IN THE CHART. ALL BELONGINGS ACCOUNTED FOR. DISCHARGED INSTRUCTIONS AND HEALTH TEACHINGS GIVEN TO PT AND PT VERBALIZED UNDERSTANDING. IV ACCESS IN SB MIDLINE REMOVED WITH NO ACTIVE BLEEDING NOTED. DRY PRESSURE DRESSING APPLIED TO SITE. REPORT GIVEN EARLIER TO KEITH HAILE OF [facility]. NAME BAND REMOVED. PT LEFT THE UNIT AT 1900 VIA GURNEY, APPRENTICE INSTRUMENT TECHNICIAN BY 2 PIPELINES SUPERINTENDENT. MD AND CHARGED NURSE AWARE OF DISCHARGED.
[2022-03-02] MEDS ORDERED: LEVOFLOXACIN (250MG) 250 MG TABLET PO SCH (12:00)
== END 2022-03-01 19:12 | DRG 481 ==
LOC: ER 19:13 → TRANSITION 02-21 03:13 → MED 02-21 08:51 → TELE 02-23 21:31 → MED 02-25 10:42
PROVIDERS: ADMIT Nurse Practitioner Acute Care; ATTEND Nurse Practitioner Acute Care
PROC: 0QS706Z Reposition Left Upper Femur with Intramedullary Internal Fixation Device, Open Approach (ICD-10-PCS; principal; 2022-02-23)
PROC: 30233N1 Transfusion of Nonautologous Red Blood Cells into Peripheral Vein, Percutaneous Approach (ICD-10-PCS; 2022-02-24)
PROC: 05HC33Z Insertion of Infusion Device into Left Basilic Vein, Percutaneous Approach (ICD-10-PCS; 2022-02-24)
DX: S72.142A Displaced intertrochanteric fracture of left femur, initial encounter for closed fracture (principal); D62 Acute posthemorrhagic anemia; E87.1 Hypo-osmolality and hyponatremia; N39.0 Urinary tract infection, site not specified; Z20.822 Contact with and (suspected) exposure to COVID-19; D50.9 Iron deficiency anemia, unspecified; W01.0XXA Fall on same level from slipping, tripping and stumbling without subsequent striking against object, initial encounter; Y92.003 Bedroom of unspecified non-institutional (private) residence as the place of occurrence of the external cause; E78.00 Pure hypercholesterolemia, unspecified; Z88.8 Allergy status to other drugs, medicaments and biological substances; E78.5 Hyperlipidemia, unspecified; E03.9 Hypothyroidism, unspecified; H91.10 Presbycusis, unspecified ear; K40.90 Unilateral inguinal hernia, without obstruction or gangrene, not specified as recurrent; Z96.652 Presence of left artificial knee joint; Z85.831 Personal history of malignant neoplasm of soft tissue; D63.8 Anemia in other chronic diseases classified elsewhere; E87.6 Hypokalemia; I25.2 Old myocardial infarction; E11.65 Type 2 diabetes mellitus with hyperglycemia; S72.22XA Displaced subtrochanteric fracture of left femur, initial encounter for closed fracture; I95.89 Other hypotension; B96.20 Unspecified Escherichia coli [E. coli] as the cause of diseases classified elsewhere; B96.1 Klebsiella pneumoniae [K. pneumoniae] as the cause of diseases classified elsewhere; R19.04 Left lower quadrant abdominal swelling, mass and lump
CPT/HCPCS: 36410; 36415; 71045-TC; 73020; 73502; 73552; 73700-TC; 80048-TC; 80053-TC; 80061-TC; 80076-TC; 81001; 82728-TC; 82962-TC; 83540-TC; 83735-TC; 84100-TC; 84155; 84165; 84436-TC; 84439-TC; 84443-TC; 84484-TC; 85025-TC; 85027-TC; 85730-TC; 86850-TC; 87081-TC; 87086-TC; 87186-TC; 93307-TC; 93971-TC; 94799-TC; 97110-TC; 97112-TC; 97530-TC; A4216; A6209; A6253; A6403; C1713; C9113; C9803; G0378; J0690; J0696; J1650; J1956; J2060; J2250; J2270; J2405; J2704; J2765; J3010; J3475; J3490; J7030; J7040; J7050; J7060; P9016

== ENCOUNTER 2022-03-22 11:53 | Inpatient (IN) | payer BC ==
[2022-03-22] VITALS: BP 104/47
[~2022-03-22] VITALS: Ht 157.5 cm; Wt 63.5 kg
[~2022-03-22 11:53] MED LIST: APIX2.5T PO; ASCO-340 PO; ATOR10TA PO; CALC500T52 PO; CHOL100043 PO; DOCU-141 PO; DULO60CA64 PO; FERR325T23 PO; HYDR-3972 PO; LEVO25TA82 PO; LEVO750T46 PO; MULT-447 PO; PANT40TA2 PO; PREG100C PO; PREG200C PO; VIT1CAPS9 PO
--- NOTE | 2022-03-22 11:55 | NUR ---
RECEVED PT 86 YRS FEMALE CAME FROM [facility] C/O LOW BP AND FAST HR ABOVE 120B/MIN RESPIRATION SPONT AND EASY
[2022-03-22 12:17] LABS: BASOPHILS % (AUTO) 0.1 % (0.0-2.0); EOSINOPHILS % (AUTO) 0.5 % (0.0-6.0); HEMATOCRIT 25 % (33-45); HEMOGLOBIN 7.9 g/dL (11.5-14.8); LYMPHOCYTES # (AUTO) 1.1 K/uL (0.8-4.8); LYMPHOCYTES % (AUTO) 6.5 % (20.0-44.0); MEAN CORPUSCULAR HGB CONC 32 g/dl (31.0-36.0); MEAN CORPUSCULAR VOLUME 85 fL (82-100); MONOCYTES % (AUTO) 5.8 % (2.0-12.0); NEUTROPHILS # (AUTO) 15.4 K/uL (1.8-8.9); NEUTROPHILS % (AUTO) 87.1 % (43.0-81.0); PLATELET COUNT (AUTO) 476 K/uL (150-450); RED BLOOD CELL COUNT(AUTO) 2.89 MIL/uL (4.0-5.2); WHITE BLOOD COUNT (AUTO) 17.7 K/uL (4.3-11.0)
[2022-03-22] MEDS ORDERED: MIDODRINE HCL (5MG) 5 MG TABLET PO STA (12:19)
[2022-03-22] MEDS ORDERED: IV NS 0.9% 1,000 ML BAG IV ONE (12:30)
[2022-03-22] MEDS ORDERED: MIDODRINE HCL (5MG) 5 MG TABLET ONE (12:40)
[2022-03-22 12:45] LABS: ALANINE AMINOTRANSFERASE 14 U/L (12-78); ALKALINE PHOSPHATASE 178 U/L (46-116); ASPARTATE AMINOTRANSFERASE 18 U/L (15-37); BILIRUBIN,DIRECT 0.4 mg/dL (0.0-0.2); BILIRUBIN,TOTAL 0.6 mg/dL (0.2-1.0); CALCIUM, SERUM 7.4 mg/dL (8.5-10.1); CARBON DIOXIDE 31 mmol/L (21-32); CHLORIDE 100 mmol/L (98-107); CREATININE 0.5 mg/dL (0.6-1.3); GLUCOSE 183 mg/dL (74-106); LIPASE 49 U/L (73-393); SODIUM SERUM 134 mmol/L (136-145); TOTAL PROTEIN, SERUM 5.7 g/dL (6.4-8.2); UREA NITROGEN, BLOOD 16 mg/dL (7-18)
--- NOTE | 2022-03-22 12:45 | NUR ---
DR. IBARRA AT BED SIDE CONDITION UP DATE TO DOGHTRER ABOUT PLAN OF CARE
[2022-03-22] MEDS ORDERED: CEFEPIME 1 GM in IV D5W 50 ML IV ONE (13:30)
[2022-03-22] MEDS ORDERED: VANCOMYCIN 1 GM in IV D5W 250 ML IV ONE (13:30)
[2022-03-22] MEDS ORDERED: IOHEXOL-300 100 ML VIAL IV ONE (13:51)
[2022-03-22] MEDS ORDERED: IV NS 0.9% 250 ML IV ONE (13:51)
[2022-03-22] MEDS ORDERED: SOD FERRIC GLUC 125 MG in IV NS 0.9% 100 ML IV SCH (14:00)
--- NOTE | 2022-03-22 14:00 | NUR ---
TO CT SCAN OF HEAD
[2022-03-22] MEDS ORDERED: MAGNESIUM HYDROXIDE 30 ML UDC PO PRN (14:30)
[2022-03-22] MEDS ORDERED: ONDANSETRON HCL/PF 4 MG/2 ML VIAL IVP PRN (14:30)
[2022-03-22] MEDS ORDERED: MAG HYDROX/AL HYDROX/SIMETH 30 ML UDC PO PRN (14:30)
[2022-03-22] MEDS ORDERED: Z GUARD REMEDY 4 OZ OINT TP PRN (14:30)
[2022-03-22] MEDS ORDERED: ACETAMINOPHEN 325 MG TABLET PO PRN (14:30)
[2022-03-22] MEDS ORDERED: TEMAZEPAM 15 MG CAPSULE PO PRN (14:30)
--- NOTE | 2022-03-22 14:30 | NUR ---
NACHO VAN SENT TO LAB
[2022-03-22] MEDS ORDERED: MAGN400O6 PO (15:04)
[2022-03-22] MEDS ORDERED: SODI1TAB66 PO (15:04)
[2022-03-22] MEDS ORDERED: ACET-868 PO (15:04)
[2022-03-22] MEDS ORDERED: AMIN30LI2 PO (15:04)
[2022-03-22] MEDS ORDERED: PANT40TA2 PO (15:04)
[2022-03-22] MEDS ORDERED: NA P133E RC (15:04)
[2022-03-22] MEDS ORDERED: APIX2.5T PO (15:04)
[2022-03-22] MEDS ORDERED: HYDR-4303 PO (15:04)
[2022-03-22] MEDS ORDERED: CRAN425C6 PO (15:04)
[2022-03-22] MEDS ORDERED: DOCU-141 PO (15:04)
[2022-03-22] MEDS ORDERED: BISA10SU11 RC (15:04)
--- NOTE | 2022-03-22 16:25 | NUR ---
MOVE SHEET SUBMITTED.
--- NOTE | 2022-03-22 17:35 | NUR ---
VITAL SIGNS UPDATED.
--- NOTE | 2022-03-22 19:08 | NUR ---
RESTING and comfortable no pain
--- NOTE | 2022-03-22 19:35 | NUR ---
HAND OFF TO SADE WORKMAN
--- NOTE | 2022-03-22 20:28 | NUR ---
BED 310-2
--- NOTE | 2022-03-22 21:50 | NUR ---
REPORT GIVEN TO NASIR
--- NOTE | 2022-03-22 22:12 | NUR ---
PT TRANSPORTED TO 310 ON CARDIAC PER ACLS
[2022-03-22] MEDS ORDERED: POTASSIUM CHLORIDE 20 MEQ TAB.PRT.SR PO ONE (23:00)
--- NOTE | 2022-03-22 23:00 | NUR ---
ADMISSION RN NOTE PATIENT TRANSFERRED IN UNIT AT THIS TIME, ACCOMPANIED BY 2 ER PERSONNEL, [place]. NO S/S OF APPARENT DISTRESS ON 3LPM OF O2 VIA NC. NO C/O PAIN AT THIS TIME. PATIENT IS A/OX2 AND IS FARSI, IRISH, AND ALBANIAN SPEAKING, PER PATIENT. NEW ID BAND ON PATIENT. IV ON LT. FA #[id number]. PATIENT HAS NO BELONGINGS ON ADMISSION. FULL CODE BY DEFAULT ORDERED BY PHYSICIAN ON POL. PATIENT NOTED TO HAVE RT. HIP INCISION THAT SEEMS TO BE OPEN AND HAVING SCANT PURULENT DRAINAGE-- WOUND CX OBTAINED AND SENT TO LAB. PATIENT HAS RECENTLY BEEN ADMITTED IN UNIT THIS MONTH WELL. PATIENT IS READING ST 115 BPM ON TELE MONITOR. JACINTA MOSQUERA USED GAMEWELL OPERATOR. PATIENT ORIENTED IN THE UNIT AND THE USE OF CALL LIGHT. SAFETY IN PLACE. WILL FOLLOW THROUGH DOCTOR'S ORDERS AND CONTINUE WITH PATIENT PLAN OF CARE. V/S FOLLOWS: 104/47, HR116, RR-18, T-98.0, O2 98%
[2022-03-22] MEDS: MORPHINE SULFATE INJ 2 MG/ML DISP.SYRIN IV PRN (23:02)
[2022-03-22] MEDS: IV NS 0.9% 1,000 ML IV PRN (23:03)
[2022-03-23] MEDS ORDERED: VANCOMYCIN 1 GM VIAL ONE (03:34)
[2022-03-23] MEDS ORDERED: CEFEPIME 1 GM VIAL ONE (03:53)
[2022-03-23] MEDS ORDERED: METRONIDAZOLE 500MG/ NS 100ML 100 ML IV ONE (03:54)
[2022-03-23 04:00] VITALS: BP 105/50
[2022-03-23] MEDS: VANCOMYCIN 0.75 GM in IV D5W 250 ML IV SCH ×2 (04:06→16:52)
[2022-03-23] MEDS: CEFEPIME 1 GM in IV D5W 50 ML IV SCH ×2 (05:02→18:19)
[2022-03-23] MEDS: METRONIDAZOLE 500MG/ NS 100ML 500 MG in PREMIX 1 EA IV SCH ×3 (05:50→21:34)
[2022-03-23 06:43] LABS: EOSINOPHILS % (AUTO) 0.6 % (0.0-6.0); HEMATOCRIT 23 % (33-45); HEMOGLOBIN 7.2 g/dL (11.5-14.8); LYMPHOCYTES # (AUTO) 1.1 K/uL (0.8-4.8); LYMPHOCYTES % (AUTO) 7.9 % (20.0-44.0); MEAN CORPUSCULAR HGB CONC 32 g/dl (31.0-36.0); MEAN CORPUSCULAR VOLUME 85 fL (82-100); MONOCYTES % (AUTO) 7.1 % (2.0-12.0); NEUTROPHILS # (AUTO) 12.2 K/uL (1.8-8.9); NEUTROPHILS % (AUTO) 84.4 % (43.0-81.0); PLATELET COUNT (AUTO) 437 K/uL (150-450); RED BLOOD CELL COUNT(AUTO) 2.65 MIL/uL (4.0-5.2); WHITE BLOOD COUNT (AUTO) 14.5 K/uL (4.3-11.0)
--- NOTE | 2022-03-23 07:20 | NUR ---
ms rn received on bed, awake,alert,oriented x2, confused at times, came w/ with sepsis, denies pain at ths time, in on,no distress noted,all needs attended.
[2022-03-23 07:26] LABS: CALCIUM, SERUM 7.6 mg/dL (8.5-10.1); CARBON DIOXIDE 28 mmol/L (21-32); CHLORIDE 100 mmol/L (98-107); CREATININE 0.4 mg/dL (0.6-1.3); GLUCOSE 165 mg/dL (74-106); MAGNESIUM 1.7 mg/dL (1.8-2.4); POTASSIUM 3.3 mmol/L (3.5-5.1); SODIUM SERUM 133 mmol/L (136-145); UREA NITROGEN, BLOOD 10 mg/dL (7-18)
--- NOTE | 2022-03-23 07:31 | NUR ---
WOUND CARE CONSULT: PT PRESENTS WITH INCISION TO LEFT HIP WITH OPEN AREA AND SCANT ARNOLD DRAINAGE, NO ODOR WELL LEFT HEEL INTACT DEEP TISSUE INJURY. RECOMMENDATIONS MADE FOR SKIN PROTECTION. DISCUSSED WITH NURSING STAFF. DEFER TO PMD FOR POSSIBLE ORTHO CONSULT. MD IN AGREEMENT WITH PLAN OF CARE. PT NOTED TO BE INCONTINENT.
--- NOTE | 2022-03-23 08:50 | NUR ---
ms rn due meds given,tolerated well. repositioned for comfort, s/p left hip surgery w/ incision covered w/ steri strips.
[2022-03-23] MEDS ORDERED: Magnesium 1GM/D5W 100ML PREMIX PIGGYBACK IV ONE (09:00)
[2022-03-23] MEDS ORDERED: POTASSIUM CHLORIDE 20 MEQ POWDER PACKET PO ONE (09:00)
[2022-03-23] MEDS: PANTOPRAZOLE 40 MG TABLET.DR PO SCH (09:14)
--- NOTE | 2022-03-23 14:00 | NUR ---
ms rn was seen by surgery truck bracer , waiting for recommendation.
[2022-03-23 16:00] VITALS: BP 101/45
[2022-03-23] MEDS: IRON SUCROSE COMPLEX 200 MG in IV NS 0.9% 100 ML IV SCH (16:52)
--- NOTE | 2022-03-23 18:00 | NUR ---
ms rn on bed, dressing to left hip changed,all needs attended, denies pain at this time,will endorse to nightclub manager for leonardo.
--- NOTE | 2022-03-23 19:30 | NUR ---
TACK MAKER OPENING NOTE RECEIVED PATIENT IN BED, WITH EYES CLOSED BUT EASY TO AROUSE AND RESPONSIVE. AFEBRILE AND NOT IN ANY FORM OF ACUTE DISTRESS. ON O2 INHALATION VIA NASAL CANNULA AT 3LPM. NO SOB/WHEEZING NOTED. NO C/O PAIN OR DISCOMFORT AT THIS TIME. WITH IV ACCESS ON R FA 22G RUNNING WITH NS AT 75ML/HR. SAFETY MEASURES IN PLACE. KEPT BED IN LOCKED AND IN LOW POSITION. SIDE RAILS UP X2. CALL LIGHT WITHIN EASY REACH.
[2022-03-23 20:00] VITALS: BP 100/46
[2022-03-23] MEDS: HYDROCODONE/APAP 5/325MG TABLET PO PRN (21:55)
[2022-03-24] VITALS: BP 101/48
[2022-03-24] MEDS: IV NS 0.9% 1,000 ML IV PRN ×2 (00:05→22:56)
[2022-03-24 03:41] LABS: BASOPHILS % (AUTO) 0.1 % (0.0-2.0); HEMATOCRIT 24 % (33-45); HEMOGLOBIN 7.6 g/dL (11.5-14.8); LYMPHOCYTES # (AUTO) 0.9 K/uL (0.8-4.8); LYMPHOCYTES % (AUTO) 6.3 % (20.0-44.0); MEAN CORPUSCULAR HGB CONC 32 g/dl (31.0-36.0); MEAN CORPUSCULAR VOLUME 84 fL (82-100); MONOCYTES % (AUTO) 7.3 % (2.0-12.0); NEUTROPHILS # (AUTO) 12.1 K/uL (1.8-8.9); NEUTROPHILS % (AUTO) 85.3 % (43.0-81.0); PLATELET COUNT (AUTO) 432 K/uL (150-450); RED BLOOD CELL COUNT(AUTO) 2.81 MIL/uL (4.0-5.2); WHITE BLOOD COUNT (AUTO) 14.1 K/uL (4.3-11.0)
[2022-03-24 03:56] LABS: ALANINE AMINOTRANSFERASE 10 U/L (12-78); ALKALINE PHOSPHATASE 156 U/L (46-116); ASPARTATE AMINOTRANSFERASE 13 U/L (15-37); BILIRUBIN,TOTAL 0.5 mg/dL (0.2-1.0); CALCIUM, SERUM 7.6 mg/dL (8.5-10.1); CARBON DIOXIDE 32 mmol/L (21-32); CHLORIDE 102 mmol/L (98-107); CREATININE 0.4 mg/dL (0.6-1.3); GLUCOSE 132 mg/dL (74-106); POTASSIUM 2.9 mmol/L (3.5-5.1); SODIUM SERUM 136 mmol/L (136-145); TOTAL PROTEIN, SERUM 5.1 g/dL (6.4-8.2); UREA NITROGEN, BLOOD 6 mg/dL (7-18)
[2022-03-24 04:00] LABS: ALBUMIN 0.9 g/dL (3.4-5.0)
[2022-03-24] MEDS: VANCOMYCIN 0.75 GM in IV D5W 250 ML IV SCH (04:07)
--- NOTE | 2022-03-24 04:09 | NUR ---
JIG WORKER NOTE VANCO TROUGH RESULT- 13. ADMINISTERED IV VANCO ORDERED.
[2022-03-24 05:00] VITALS: BP 104/55
[2022-03-24] MEDS: CEFEPIME 1 GM in IV D5W 50 ML IV SCH ×2 (05:11→16:54)
--- NOTE | 2022-03-24 06:30 | NUR ---
CDL TRUCK DRIVER CLOSING NOTE PATIENT IN BED, ASLEEP BUT EASY TO AROUSE AND RESPONSIVE. AFEBRILE AND NOT IN ANY FORM OF ACUTE DISTRESS. ON O2 INHALATION VIA NASAL CANNULA AT 3LPM. NO SOB/WHEEZING NOTED. LUNG SOUNDS CLEAR ON AUSCULTATION. WITH IV ACCESS ON R FA 22G RUNNING WITH NS AT 75ML/HR. ON CARDIAC MONITORING WITH READING OF AT 105. MEDICATED ORDERED. CONTINUOUS ON IV ATB, MONITORED FOR ANY ADVERSE REACTION. SAFETY MEASURES IN PLACE. KEPT BED IN LOCKED AND IN LOW POSITION. SIDE RAILS UP X2. CALL LIGHT WITHIN EASY REACH. CONSTANT VISUAL CHECK DONE TO ENSURE SAFETY. ALL NURSING NEEDS ATTENDED. ENDORSED TO INCOMING NURSE FOR CONTINUITY OF CARE.
[2022-03-24] MEDS: METRONIDAZOLE 500MG/ NS 100ML 500 MG in PREMIX 1 EA IV SCH ×3 (06:33→21:49)
[2022-03-24 07:00] VITALS: BP 130/72
--- NOTE | 2022-03-24 07:00 | NUR ---
STRAIGHT LINE EDGER NOTE PATIENT PULLED OUT IV ACCESS AND REINSERTED ON R HAND 22G, TOLERATED WELL.
--- NOTE | 2022-03-24 07:08 | NUR ---
1ST PRESSMAN ON WEB PRESS OPENING NOTES RECEIVED PATIENT SLEEPING IN BED, A/Ox2 WITH EPISODES OF CONFUSION. ON 3L OF O2 VIA NC. NO S/S OF RESPIRATORY DISTRESS. ON TELE MONITORING SHOWING ST 115. NO COMPLAINT OF CHEST PAIN. IV ACCES R HAND #22 RUNNING NS @75 ML/HR. INTACT AND PATENT. NO S/S OF INFILTRATION. PATIENT INCONTINENT. SKIN ISSUES: L HIP SX INCISION AND LLE WOUND. DRESSINGS IN PLACE. SAFETY MEASURES IN PLACE: BED LOCKED AND IN LOWEST POSITION, HOB ELEVATED, SIDE RAILS UPx2, CALL LIGHT WITHIN REACH. WILL CONTINUE TO MONITOR.
[2022-03-24] MEDS: PANTOPRAZOLE 40 MG TABLET.DR PO SCH (09:28)
[2022-03-24] MEDS ORDERED: POTASSIUM CHLORIDE 20 MEQ TAB.PRT.SR PO ONE (12:00)
[2022-03-24] MEDS: VANCOMYCIN 1 GM in IV D5W 250ml IV SCH (15:24)
[2022-03-24] MEDS: HYDROCODONE/APAP 5/325MG TABLET PO PRN (17:54)
--- NOTE | 2022-03-24 18:40 | NUR ---
RN NOTES PATIENT COMPLAINED OF PAIN, PRN NARCO ADMINISTERED.
--- NOTE | 2022-03-24 19:28 | NUR ---
AERIAL INSTALLER CLOSING NOTES PATIENT SLEEPING IN BED, A/Ox2 WITH EPISODES OF CONFUSION. STABLE ON 3L OF O2 VIA NC. NO S/S OF RESPIRATORY DISTRESS. ON TELE MONITORING SHOWING ST 110. NO COMPLAINT OF CHEST PAIN. IV ACCES R HAND #22 RUNNING NS @75 ML/HR. INTACT AND PATENT. NO S/S OF INFILTRATION. PATIENT INCONTINENT. SKIN ISSUES: L HIP SX INCISION AND LLE WOUND. DRESSINGS IN PLACE. SAFETY MEASURES IN PLACE: BED LOCKED AND IN LOWEST POSITION, HOB ELEVATED, SIDE RAILS UPx2, CALL LIGHT WITHIN REACH. WILL ENDORSE TO NEXT SHIFT ANY MUSA.
[2022-03-24 19:29] LABS: BILIRUBIN,URINE NEGATIVE (NEGATIVE); COLOR,URINE YELLOW (YELLOW); LEUKOCYTE ESTERASE ,URINE NEGATIVE (NEGATIVE); NITRITE, URINE NEGATIVE (NEGATIVE); PH,URINE 5.5 (5.0-8.0); PROTEIN,URINE NEGATIVE (NEGATIVE); UGLUCOSE NEGATIVE (NEGATIVE); UROBILINOGEN,URINE 0.2 EU/dL (0.2)
--- NOTE | 2022-03-24 19:35 | NUR ---
SPACE PLANNER OPENING NOTE RECEIVED PATIENT IN BED; ASLEEP, EASILY AROUSABLE BY TOUCH STIMULI; ALERT AND ORIENTED X 2 WITH EPISODES OF CONFUSION. ON O2 INHALATION @ 3 LPM VIA NASAL CANNULA; TOLERATING WELL. NOT IN ANY FORM OF RESPIRATORY DISTRESS. ON TELE MONITORING WHICH READS SINUS TACHYCARDIA HR-111 BPM WITH PAC AND PVC. WITH IV ACCESS @ RIGHT HAND 22G; PATENT AND INTACT RUNNING WITH NS 1L REGULATED @ 75 ML/HR; FLUSHES WELL. NEEDS ANTICIPATED. SAFETY PRECAUTIONS IMPLEMENTED: CALL LIGHT AND TABLE WITHIN REACH, SIDE RAILS UP X 2, BED IN LOWEST LOCKED POSITION. WILL CONTINUE PLAN OF CARE.
[2022-03-24 19:56] LABS: BACTERIA,URINE Few /HPF (None Seen); RBC,URINE NONE SEEN /HPF (0-2); SQUAMOUS EPITHELIAL CELL,UR Rare /HPF (None Seen); WBC,URINE NONE SEEN /HPF (0-3)
[2022-03-24 19:57] LABS: URINE AMORPHOUS URATE Moderate /HPF (None Seen)
[2022-03-24 20:00] VITALS: BP 107/53
[2022-03-24 20:27] VITALS: BP 107/53
[2022-03-25 00:22] VITALS: BP 116/59
[2022-03-25] MEDS: VANCOMYCIN 1 GM in IV D5W 250ml IV SCH ×2 (04:02→15:54)
[2022-03-25] MEDS: MORPHINE SULFATE INJ 2 MG/ML DISP.SYRIN IV PRN (04:19)
[2022-03-25] MEDS: CEFEPIME 1 GM in IV D5W 50 ML IV SCH ×2 (05:11→17:37)
[2022-03-25] MEDS: METRONIDAZOLE 500MG/ NS 100ML 500 MG in PREMIX 1 EA IV SCH ×3 (05:40→22:46)
[2022-03-25 06:53] LABS: BASOPHILS % (AUTO) 0.1 % (0.0-2.0); EOSINOPHILS % (AUTO) 0.8 % (0.0-6.0); HEMATOCRIT 23 % (33-45); HEMOGLOBIN 7.6 g/dL (11.5-14.8); LYMPHOCYTES # (AUTO) 1.2 K/uL (0.8-4.8); LYMPHOCYTES % (AUTO) 8.7 % (20.0-44.0); MEAN CORPUSCULAR HGB CONC 32 g/dl (31.0-36.0); MEAN CORPUSCULAR VOLUME 85 fL (82-100); MONOCYTES # (AUTO) 1.1 K/uL (0.1-1.30); NEUTROPHILS % (AUTO) 82.4 % (43.0-81.0); PLATELET COUNT (AUTO) 450 K/uL (150-450); RED BLOOD CELL COUNT(AUTO) 2.76 MIL/uL (4.0-5.2); WHITE BLOOD COUNT (AUTO) 13.4 K/uL (4.3-11.0)
--- NOTE | 2022-03-25 07:00 | NUR ---
FIRE PRODUCTION OPERATOR CLOSING NOTE PATIENT IN BED; AWAKE, A/O X 2 WITH EPISODES OF CONFUSION. ON O2 INHALATION @ 3 LPM VIA NASAL CANNULA; TOLERATING WELL. IN NO ACUTE DISTRESS. ON TELE MONITORING WHICH READS SINUS TACHYCARDIA HR-109 BPM WITH PACS AND PVCS. WITH IV ACCESS @ RIGHT HAND 22G; PATENT AND INTACT RUNNING WITH NS 1L REGULATED @ 75 ML/HR; FLUSHES WELL. ALL NEEDS ATTENDED. SAFETY PRECAUTIONS MAINTAINED: CALL LIGHT AND TABLE WITHIN REACH, SIDE RAILS UP X 2, BED IN LOWEST LOCKED POSITION. ENDORSED TO JACINTA AMIN FOR MUSA.
[2022-03-25 07:18] LABS: CALCIUM, SERUM 7.5 mg/dL (8.5-10.1); CARBON DIOXIDE 30 mmol/L (21-32); CHLORIDE 102 mmol/L (98-107); CREATININE 0.4 mg/dL (0.6-1.3); GLUCOSE 149 mg/dL (74-106); SODIUM SERUM 135 mmol/L (136-145); UREA NITROGEN, BLOOD 6 mg/dL (7-18)
[2022-03-25 07:31] LABS: POTASSIUM 2.8 mmol/L (3.5-5.1)
--- NOTE | 2022-03-25 07:40 | NUR ---
POWER BALLAST MACHINE OPERATOR OPENING NOTE RECEIVED PT IN BED; ASLEEP, EASILY AROUSABLE, A/O X 2 WITH EPISODES OF CONFUSION. ON ROOM AIR TOLERATING WELL, SATURATING AT 98%. NO ACUTE DISTRESS NOTED. TELE MONITORING SHOWS SINUS TACHYCARDIA AT HR-109 BPM WITH PACS AND PVCS. IV ACCESS @ RIGHT HAND 22G; PATENT AND INTACT RUNNING WITH NS 1L REGULATED @ 75 ML/HR; FLUSHES WELL. SAFETY PRECAUTIONS IN PLACE: CALL LIGHT AND TABLE WITHIN REACH, SIDE RAILS UP X 2, BED IN LOWEST LOCKED POSITION. WILL CONTINUE TO MONITOR DURING MY SHIFT.
[2022-03-25] MEDS: PANTOPRAZOLE 40 MG TABLET.DR PO SCH (07:54)
[2022-03-25 08:00] VITALS: BP 101/45
[2022-03-25] MEDS ORDERED: POTASSIUM CHLORIDE 20 MEQ POWDER PACKET PO ONE ×2 (10:00→14:00)
[2022-03-25] MEDS: HYDROCODONE/APAP 5/325MG TABLET PO PRN ×2 (10:06→15:47)
--- NOTE | 2022-03-25 10:10 | NUR ---
RN NOTES - IV ACCESS INFILTRATED PATIENT COMPLAINING OF PAIN ON RIGHT ARM, IV ACCESS IS INFILTRATED, ASKED FOR PAIN MEDICATION FOR 4/10 PAIN - GAVE NORCO 5 ORDERED. IV LINE REINSERTED ON LFA G#22 FLUSHING WELL. DVT STOCKINGS APPLIED ON BOTH LEGS WELL FOR VTE SCORE OF 5.
[2022-03-25] MEDS: IRON SUCROSE COMPLEX 200 MG in IV NS 0.9% 100 ML IV SCH (15:34)
[2022-03-25] MEDS: ENSURE ENLIVE 237 ML LIQUID (VANILLA) PO SCH ×2 (15:35→17:37)
[2022-03-25 16:00] VITALS: BP 103/47
--- NOTE | 2022-03-25 18:45 | NUR ---
DIRECTOR HOUSEKEEPING CLOSING NOTE PT LYING IN BED; ASLEEP, EASILY AWAKEN, A/O X 2 WITH EPISODES OF CONFUSION. ON 3LPM O2 VIA NC, SATURATING AT 96%, NO SOB, NO ACUTE DISTRESS NOTED. TELE MONITORING SHOWS SINUS TACHYCARDIA AT HR-120 BPM. IV ACCESS @ LEFT FOREARM G#22; PATENT AND INTACT RUNNING WITH NS 1L REGULATED @ 75 ML/HR; FLUSHES WELL. ALL DUE MEDS, ALL NEEDS MET. SAFETY PRECAUTIONS MAINTAINED: CALL LIGHT AND TABLE WITHIN REACH, SIDE RAILS UP X 2, BED IN LOWEST LOCKED POSITION. ENDORSED TO INSURANCE UNDERWRITER NURSE.
--- NOTE | 2022-03-25 19:25 | NUR ---
CITY COUNCIL MEMBER OPENING NOTE RECEIVED PATIENT IN BED; AWAKE, ALERT AND ORIENTED X 2 WITH EPISODES OF CONFUSION. ON O2 INHALATION @ 3 LPM VIA NASAL CANNULA; TOLERATING WELL. NOT IN ANY FORM OF RESPIRATORY DISTRESS. ON TELE MONITORING WHICH READS SINUS TACHYCARDIA HR-105 BPM. WITH IV ACCESS @ LEFT FOREARM 22G; PATENT AND INTACT RUNNING WITH NS 1L REGULATED @ 75 ML/HR; FLUSHES WELL. NEEDS ANTICIPATED. SAFETY PRECAUTIONS IMPLEMENTED: CALL LIGHT AND TABLE WITHIN REACH, SIDE RAILS UP X 2, BED IN LOWEST LOCKED POSITION. WILL CONTINUE PLAN OF CARE.
[2022-03-25 20:00] VITALS: BP 104/52
[2022-03-26] VITALS: BP 119/45
[2022-03-26] MEDS: IV NS 0.9% 1,000 ML IV PRN (02:07)
[2022-03-26 03:14] LABS: BASOPHILS % (AUTO) 0.1 % (0.0-2.0); EOSINOPHILS % (AUTO) 0.6 % (0.0-6.0); HEMATOCRIT 25 % (33-45); LYMPHOCYTES # (AUTO) 1.2 K/uL (0.8-4.8); LYMPHOCYTES % (AUTO) 8.3 % (20.0-44.0); MEAN CORPUSCULAR HGB CONC 32 g/dl (31.0-36.0); MEAN CORPUSCULAR VOLUME 85 fL (82-100); MONOCYTES # (AUTO) 1.1 K/uL (0.1-1.30); NEUTROPHILS # (AUTO) 11.5 K/uL (1.8-8.9); PLATELET COUNT (AUTO) 444 K/uL (150-450); RED BLOOD CELL COUNT(AUTO) 2.97 MIL/uL (4.0-5.2); WHITE BLOOD COUNT (AUTO) 13.9 K/uL (4.3-11.0)
[2022-03-26 03:27] LABS: CALCIUM, SERUM 7.2 mg/dL (8.5-10.1); CARBON DIOXIDE 31 mmol/L (21-32); CHLORIDE 100 mmol/L (98-107); CREATININE 0.4 mg/dL (0.6-1.3); GLUCOSE 126 mg/dL (74-106); POTASSIUM 3.3 mmol/L (3.5-5.1); SODIUM SERUM 135 mmol/L (136-145); UREA NITROGEN, BLOOD 6 mg/dL (7-18)
[2022-03-26 04:00] VITALS: BP 100/51
[2022-03-26] MEDS: VANCOMYCIN 1 GM in IV D5W 250ml IV SCH ×2 (04:25→16:55)
[2022-03-26] MEDS: HYDROCODONE/APAP 5/325MG TABLET PO PRN ×3 (04:26→15:16)
[2022-03-26] MEDS: CEFEPIME 1 GM in IV D5W 50 ML IV SCH ×2 (05:37→18:28)
[2022-03-26] MEDS: METRONIDAZOLE 500MG/ NS 100ML 500 MG in PREMIX 1 EA IV SCH ×3 (06:31→21:10)
--- NOTE | 2022-03-26 07:00 | NUR ---
SNAILER CLOSING NOTE PATIENT IN BED; AWAKE, A/O X 2 WITH EPISODES OF CONFUSION. ON O2 INHALATION @ 3 LPM VIA NASAL CANNULA; TOLERATING WELL. IN NO ACUTE DISTRESS. ON TELE MONITORING WHICH READS SINUS RHYTHM HR-95 BPM WITH PACS AND PVCS. WITH IV ACCESS @ RIGHT HAND 22G; PATENT AND INTACT RUNNING WITH NS 1L REGULATED @ 75 ML/HR; FLUSHES WELL. ALL NEEDS ATTENDED. SAFETY PRECAUTIONS MAINTAINED: CALL LIGHT AND TABLE WITHIN REACH, SIDE RAILS UP X 2, BED IN LOWEST LOCKED POSITION. ENDORSED TO JACINTA AMIN FOR MUSA.
[2022-03-26] MEDS: PANTOPRAZOLE 40 MG TABLET.DR PO SCH (07:54)
[2022-03-26] MEDS: ENSURE ENLIVE 237 ML LIQUID (VANILLA) PO SCH ×2 (07:59→17:31)
[2022-03-26 08:00] VITALS: BP 100/45
[2022-03-26] MEDS ORDERED: POTASSIUM CHLORIDE 20 MEQ TAB.PRT.SR PO ONE (09:00)
[2022-03-26] MEDS ORDERED: BISACODYL SUPP (10 MG) 10 MG/SUPP.RECT SUPP.RECT RC PRN (10:30)
[2022-03-26] MEDS: PREGABALIN 100 MG CAPSULE PO SCH ×2 (11:58→17:20)
[2022-03-26 16:00] VITALS: BP 113/50
[2022-03-26] MEDS: DOCUSATE SODIUM 100 MG CAPSULE PO SCH (17:20)
[2022-03-26] MEDS: APIXABAN 2.5 MG TABLET PO SCH (17:21)
[2022-03-26 20:00] VITALS: BP 88/41
[2022-03-26] MEDS: ATORVASTATIN 10 MG TABLET PO SCH (21:10)
[2022-03-27] VITALS: BP 87/41
[2022-03-27] MEDS: VANCOMYCIN 1 GM in IV D5W 250ml IV SCH (03:08)
[2022-03-27] MEDS: CEFEPIME 1 GM in IV D5W 50 ML IV SCH (04:28)
[2022-03-27] MEDS: METRONIDAZOLE 500MG/ NS 100ML 500 MG in PREMIX 1 EA IV SCH (05:01)
--- NOTE | 2022-03-27 05:30 | NUR ---
SPOOLING SUPERVISOR CLOSING NOTE PT LYING IN BED; ASLEEP, EASILY AWAKEN, A/O X 2 WITH EPISODES OF CONFUSION. STILL ON 3LPM O2 VIA NC, SATURATING AT 96%, NO SOB, NO ACUTE DISTRESS NOTED. TELE MONITORING SHOWS SINUS TACHYCARDIA AT HR-120 BPM. IV ACCESS @ LEFT FOREARM G#24; PATENT AND INTACT RUNNING WITH NS 1L REGULATED @ 75 ML/HR; FLUSHES WELL. ALL DUE MEDS, ALL NEEDS MET. SAFETY PRECAUTIONS MAINTAINED: CALL LIGHT AND TABLE WITHIN REACH, SIDE RAILS UP X 2, BED IN LOWEST LOCKED POSITION. ENDORSED TO STRAINER CLEANER NURSE. ENDORSED TO THE RN FOR CONTINUITY OF CARE.
[2022-03-27 07:25] LABS: BASOPHILS % (AUTO) 0.2 % (0.0-2.0); EOSINOPHILS % (AUTO) 0.7 % (0.0-6.0); HEMATOCRIT 30 % (33-45); HEMOGLOBIN 9.1 g/dL (11.5-14.8); LYMPHOCYTES # (AUTO) 1.4 K/uL (0.8-4.8); LYMPHOCYTES % (AUTO) 9.1 % (20.0-44.0); MEAN CORPUSCULAR HGB CONC 30 g/dl (31.0-36.0); MEAN CORPUSCULAR VOLUME 89 fL (82-100); MONOCYTES # (AUTO) 1.6 K/uL (0.1-1.30); MONOCYTES % (AUTO) 10.1 % (2.0-12.0); NEUTROPHILS # (AUTO) 12.4 K/uL (1.8-8.9); NEUTROPHILS % (AUTO) 79.9 % (43.0-81.0); PLATELET COUNT (AUTO) 456 K/uL (150-450); RED BLOOD CELL COUNT(AUTO) 3.39 MIL/uL (4.0-5.2); WHITE BLOOD COUNT (AUTO) 15.5 K/uL (4.3-11.0)
[2022-03-27 07:59] LABS: CALCIUM, SERUM 7.9 mg/dL (8.5-10.1); CREATININE 0.8 mg/dL (0.6-1.3); POTASSIUM 3.9 mmol/L (3.5-5.1)
[2022-03-27 08:00] VITALS: BP 112/58
[2022-03-27] MEDS: PANTOPRAZOLE 40 MG TABLET.DR PO SCH (09:00)
[2022-03-27] MEDS ORDERED: FERROUS SULFATE (325 MG) 325 MG/TAB TABLET PO SCH (09:00)
[2022-03-27] MEDS: LEVOTHYROXINE SODIUM 25 MCG TABLET PO SCH (09:00)
[2022-03-27] MEDS: MULTIVITAMINS,THERAGRAN 1 UDTAB TABLET PO SCH (09:14)
[2022-03-27] MEDS: CALCIUM CARBONATE (1250) 500 MG TABLET PO SCH (09:14)
[2022-03-27] MEDS: CHOLECALCIFEROL 1,000 UNIT TABLET (VIT D3) PO SCH ×2 (09:14→09:22)
[2022-03-27] MEDS: ASCORBIC ACID 500 MG TABLET PO SCH (09:15)
[2022-03-27] MEDS: DULOXETINE HCL 30 MG CAPSULE.DR PO SCH (09:15)
[2022-03-27] MEDS: PREGABALIN 100 MG CAPSULE PO SCH ×2 (09:15→17:39)
[2022-03-27] MEDS: MULTIVITAMIN/LUTEIN/MINERALS 1 TAB PO SCH (09:22)
[2022-03-27] MEDS: APIXABAN 2.5 MG TABLET PO SCH ×2 (10:22→17:32)
[2022-03-27] MEDS: DOXYCYCLINE HYCLATE (100 MG) 100 MG TABLET PO SCH ×2 (10:24→21:52)
[2022-03-27] MEDS: ENSURE ENLIVE 237 ML LIQUID (VANILLA) PO SCH ×2 (10:27→17:28)
[2022-03-27] MEDS: AMOX/CLAVULANATE 875 MG TABLET PO SCH ×2 (10:27→21:52)
[2022-03-27] MEDS: PROSOURCE / PROSTAT (PYXIS) 30 ML UDC PO SCH (10:40)
[2022-03-27 12:00] VITALS: BP 106/51
--- NOTE | 2022-03-27 12:00 | NUR ---
PATIENT ON SINUS TACHY AT 140 BPM, NOTIFIED DR. JASSO WITH NO NEW ORDER PATIENT ALREADY ON ELIQUIS. MONITOR PATIENT FREQUENTLY. AFTER AN HOUR, PATIENT HEART RATE WENT DOWN TO 110. TO MONITOR
[2022-03-27 16:00] VITALS: BP 116/52
[2022-03-27] MEDS: FERROUS SULFATE (325 MG) 325 MG/TAB TABLET PO SCH (17:28)
[2022-03-27] MEDS: DOCUSATE SODIUM 100 MG CAPSULE PO SCH (17:39)
--- NOTE | 2022-03-27 18:48 | NUR ---
BELT SEWER OPENING NOTE RECEIVED PATIENT IN BED; AWAKE, ALERT AND ORIENTED X 2 WITH EPISODES OF CONFUSION. ON O2 INHALATION @ 3 LPM VIA NASAL CANNULA; TOLERATING WELL. NOT IN ANY FORM OF RESPIRATORY DISTRESS. ON TELE MONITORING WHICH READS SINUS TACHYCARDIA HR-120 BPM. WITH IV ACCESS @ LEFT FOREARM 22G; PATENT AND INTACT RUNNING WITH NS 1L REGULATED @ 75 ML/HR; FLUSHES WELL. NEEDS ANTICIPATED. SAFETY PRECAUTIONS IMPLEMENTED: CALL LIGHT AND TABLE WITHIN REACH, SIDE RAILS UP X 2, BED IN LOWEST LOCKED POSITION. WILL CONTINUE PLAN OF CARE. Addendum: 03/27/22 at 1849 by TRINO FAJARDO RN EXACT TIME [id number]
--- NOTE | 2022-03-27 18:53 | NUR ---
APPETIZER PACKER OPENING NOTE PATIENT IN BED; AWAKE, ALERT AND ORIENTED X 2 WITH EPISODES OF CONFUSION. ON O2 INHALATION @ 3 LPM VIA NASAL CANNULA; TOLERATING WELL. NOT IN ANY FORM OF RESPIRATORY DISTRESS. ON TELE MONITORING WHICH READS SINUS TACHYCARDIA HR-106 BPM. WITH IV ACCESS @ LEFT FOREARM 22G. FLUSHES WELL. NEEDS ANTICIPATED. SAFETY PRECAUTIONS IMPLEMENTED: CALL LIGHT AND TABLE WITHIN REACH, SIDE RAILS UP X 2, BED IN LOWEST LOCKED POSITION. WILL CONTINUE PLAN OF CARE. ENDORSED TO INCOMING NOD.
--- NOTE | 2022-03-27 19:35 | NUR ---
JAVA SOFTWARE ENGINEER OPENING NOTE RECEIVED PATIENT IN BED, SLEEPING. PT ALERT AND ORIENTED X 2 WITH EPISODES OF CONFUSION. ON O2 INHALATION @ 3 LPM VIA NASAL CANNULA; TOLERATING WELL. NO RESPIRATORY DISTRESS NOTED. ON TELE MONITORING WHICH READS SINUS TACHYCARDIA. IV ACCESS TO LEFT FOREARM 22G; PATENT AND INTACT RUNNING NS @ 75 ML/HR. SAFETY PRECAUTIONS IMPLEMENTED: CALL LIGHT AND TABLE WITHIN REACH, SIDE RAILS UP X 2, BED IN LOWEST LOCKED POSITION. WILL CONTINUE TO MONITOR PT.
[2022-03-27 20:00] VITALS: BP 82/40
[2022-03-27] MEDS: ATORVASTATIN 10 MG TABLET PO SCH (21:52)
[2022-03-28] VITALS: BP 98/48
[2022-03-28] MEDS: MORPHINE SULFATE INJ 2 MG/ML DISP.SYRIN IV PRN (01:17)
[2022-03-28 04:00] VITALS: BP 90/53
--- NOTE | 2022-03-28 07:15 | NUR ---
HARNESS BRUSHER CLOSING NOTE LEFT PATIENT IN BED, SLEEPING. PT ALERT AND ORIENTED X 2 WITH EPISODES OF CONFUSION. ON O2 INHALATION @ 3 LPM VIA NASAL CANNULA; TOLERATING WELL. NO RESPIRATORY DISTRESS NOTED, NO C/O PAIN AT THIS TIME. ON TELE MONITORING WHICH READS SINUS TACHYCARDIA. IV ACCESS TO LEFT FOREARM 22G; PATENT AND INTACT. SAFETY PRECAUTIONS IMPLEMENTED: CALL LIGHT AND TABLE WITHIN REACH, SIDE RAILS UP X 2, BED IN LOWEST LOCKED POSITION. WILL ENDORSE TO AM SHIFT NURSE FOR MUSA.
--- NOTE | 2022-03-28 07:20 | NUR ---
AUTO TESTER OPEN NOTE NOTE PATIENT IN BED, ALERT AND ORIENTED X 2 WITH EPISODES OF CONFUSION. ON O2 @ 3 LPM VIA NASAL CANNULA; TOLERATING WELL. NO RESPIRATORY DISTRESS NOTED, NO C/O PAIN AT THIS TIME. ON TELE MONITORING WHICH READS SINUS TACHYCARDIA. NO IV CHENEGA DUE TO PARENT REMOVED IT . SAFETY PRECAUTIONS IMPLEMENTED: CALL LIGHT AND TABLE WITHIN REACH, SIDE RAILS UP X 2, BED IN LOWEST LOCKED POSITION. WILL CONTINUE TO MONITOR
[2022-03-28 07:31] LABS: CALCIUM, SERUM 7.6 mg/dL (8.5-10.1); CARBON DIOXIDE 29 mmol/L (21-32); CHLORIDE 100 mmol/L (98-107); CREATININE 1.4 mg/dL (0.6-1.3); GLUCOSE 123 mg/dL (74-106); POTASSIUM 4.2 mmol/L (3.5-5.1); SODIUM SERUM 135 mmol/L (136-145); UREA NITROGEN, BLOOD 30 mg/dL (7-18)
[2022-03-28] MEDS: PANTOPRAZOLE 40 MG TABLET.DR PO SCH (07:52)
[2022-03-28] MEDS: LEVOTHYROXINE SODIUM 25 MCG TABLET PO SCH (07:52)
[2022-03-28 08:00] VITALS: BP 93/42
[2022-03-28] MEDS: ENSURE ENLIVE 237 ML LIQUID (VANILLA) PO SCH ×2 (08:01→16:20)
[2022-03-28] MEDS: MULTIVITAMIN/LUTEIN/MINERALS 1 TAB PO SCH (09:06)
[2022-03-28] MEDS: AMOX/CLAVULANATE 875 MG TABLET PO SCH ×2 (09:06→21:46)
[2022-03-28] MEDS: MULTIVITAMINS,THERAGRAN 1 UDTAB TABLET PO SCH (09:06)
[2022-03-28] MEDS: FERROUS SULFATE (325 MG) 325 MG/TAB TABLET PO SCH ×2 (09:07→16:02)
[2022-03-28] MEDS: ASCORBIC ACID 500 MG TABLET PO SCH (09:07)
[2022-03-28] MEDS: DULOXETINE HCL 30 MG CAPSULE.DR PO SCH (09:07)
[2022-03-28] MEDS: PREGABALIN 100 MG CAPSULE PO SCH ×2 (09:07→17:23)
[2022-03-28] MEDS: CALCIUM CARBONATE (1250) 500 MG TABLET PO SCH (09:08)
[2022-03-28] MEDS: DOXYCYCLINE HYCLATE (100 MG) 100 MG TABLET PO SCH ×2 (09:08→21:47)
[2022-03-28] MEDS: APIXABAN 2.5 MG TABLET PO SCH ×2 (09:09→16:03)
[2022-03-28] MEDS: PROSOURCE / PROSTAT (PYXIS) 30 ML UDC PO SCH (09:19)
[2022-03-28] MEDS: IV NS 0.9% 1,000 ML IV PRN (14:54)
[2022-03-28] MEDS: DOCUSATE SODIUM 100 MG CAPSULE PO SCH (17:23)
--- NOTE | 2022-03-28 17:38 | NUR ---
RN NOTE UPON DINNER TIME , NOTED THAT PATIENT HAS HARD TIME TO SWALLOW THE FOOD , WILL CHANGE FROM SOFT FOOD TO PURE DIET
--- NOTE | 2022-03-28 17:51 | NUR ---
RN NOTE PATIENT DEVELOPED GENERALIZED EDEMA PITING +2.IV HYDRATION STOPED , PATIENT DIDNT URINATE AT ALL TODAY .DOCTOR ROMERO NOTIFIED.
--- NOTE | 2022-03-28 18:27 | NUR ---
PRESIDENT TRUST COMPANY CLOSING NOTE PATIENT IN BED; AWAKE, ALERT AND ORIENTED X 2 WITH EPISODES OF CONFUSION. ON O2 @ 3 LPM VIA NASAL CANNULA; TOLERATING WELL. NOT IN ANY FORM OF RESPIRATORY DISTRESS. ON TELE MONITORING WHICH READS SR 78. WITH IV ACCESS @ LEFT FOREARM 22G. FLUSHES WELL. NEEDS ANTICIPATED. SAFETY PRECAUTIONS IMPLEMENTED: CALL LIGHT AND TABLE WITHIN REACH, SIDE RAILS UP X 2, BED IN LOWEST LOCKED POSITION. WILL CONTINUE PLAN OF CARE. ENDORSED TO INCOMING TEST CELL TECHNICIAN NURSE.
--- NOTE | 2022-03-28 19:30 | NUR ---
EPIC RADIANT ANALYST OPENING NOTE RECEIVED PATIENT IN BED, WITH HOB ELEVATED, ALERT AND ORIENTED X2. AFEBRILE AND NOT IN ANY FORM OF ACUTE DISTRESS. ON O2 INHALATION VIA NASAL CANNULA AT 3LPM. WITH IV ACCESS ON L HAND 24G-SL. SAFETY MEASURES IN PLACE. KEPT BED IN LOCKED AND IN LOW POSITION TO REDUCE INJURY. SIDE RAILS UP X2. ADVISED TO USE THE CALL LIGHT WHEN IN NEED OF ASSISTANCE.
[2022-03-28 20:00] VITALS: BP 98/48
[2022-03-28] MEDS: ATORVASTATIN 10 MG TABLET PO SCH (21:47)
[2022-03-29] VITALS: BP 92/44
[2022-03-29] MEDS: IV NS 0.9% 1,000 ML IV PRN (05:35)
--- NOTE | 2022-03-29 06:41 | NUR ---
CHIEF ENVIRONMENTAL COMMITMENT OFFICER CLOSING NOTE PATIENT IN BED, WITH HOB ELEVATED, ASLEEP BUT EASY TO AROUSE AND RESPONDS TO VERBAL AND TACTILE STIMULI. AFEBRILE AND NOT IN ANY FORM OF ACUTE DISTRESS. ON O2 INHALATION VIA NASAL CANNULA AT 3LPM. ON TELE MONITORING WITH CURRENT READING OF ST 108 WITH PAC WITH IV ACCESS ON L HAND 24G-SL. MEDICATED ORDERED. ON PO ATB, MONITORED FOR ANY ADVERSE REACTION. TURNED AND REPOSITIONED EVERY 2 HOURS AND TOLERATED TO PROMOTE PROPER CIRCULATION AND COMFORT. SAFETY MEASURES IN PLACE. KEPT BED IN LOCKED AND IN LOW POSITION TO REDUCE INJURY. SIDE RAILS UP X2. ADVISED TO USE THE CALL LIGHT WHEN IN NEED OF ASSISTANCE. CONSTANT VISUAL CHECK DONE TO ENSURE SAFETY. ALL NURSING NEEDS ATTENDED. ENDORSED TO INCOMING SHIFT FOR CONTINUITY OF CARE.
[2022-03-29 07:00] VITALS: BP 79/64
[2022-03-29] MEDS: ENSURE ENLIVE 237 ML LIQUID (VANILLA) PO SCH (08:00)
[2022-03-29] MEDS: PANTOPRAZOLE 40 MG TABLET.DR PO SCH (10:58)
[2022-03-29] MEDS: LEVOTHYROXINE SODIUM 25 MCG TABLET PO SCH (10:58)
[2022-03-29] MEDS: MULTIVITAMINS,THERAGRAN 1 UDTAB TABLET PO SCH (10:58)
[2022-03-29] MEDS: MULTIVITAMIN/LUTEIN/MINERALS 1 TAB PO SCH (11:00)
[2022-03-29] MEDS: CALCIUM CARBONATE (1250) 500 MG TABLET PO SCH (11:00)
[2022-03-29] MEDS: DOXYCYCLINE HYCLATE (100 MG) 100 MG TABLET PO SCH (11:01)
[2022-03-29] MEDS: ASCORBIC ACID 500 MG TABLET PO SCH (11:01)
[2022-03-29] MEDS: PREGABALIN 100 MG CAPSULE PO SCH (11:18)
[2022-03-29] MEDS: APIXABAN 2.5 MG TABLET PO SCH (11:24)
[2022-03-29] MEDS: DULOXETINE HCL 30 MG CAPSULE.DR PO SCH (12:11)
[2022-03-29] MEDS: AMOX/CLAVULANATE 875 MG TABLET PO SCH (12:11)
[2022-03-29] MEDS: FERROUS SULFATE (325 MG) 325 MG/TAB TABLET PO SCH (12:12)
[2022-03-29] MEDS: CHOLECALCIFEROL 1,000 UNIT TABLET (VIT D3) PO SCH (12:15)
[2022-03-29] MEDS: PROSOURCE / PROSTAT (PYXIS) 30 ML UDC PO SCH (12:16)
--- NOTE | 2022-03-29 20:33 | NUR ---
Patient discharge to acute rehab in stable condition. No signs of distress noted. Vital signs stable. Patient on o2 liter sat 98%. Picture of left heel and abdomen taken. Patient cleaned and changed before departure to rehab. All belongings sent with patient. Report given to rehab nurse.
== END 2022-03-29 18:21 | DRG 871 ==
LOC: ER 11:55 → TELE 20:48
PROVIDERS: ADMIT Nurse Practitioner Acute Care; ATTEND Nurse Practitioner Acute Care
DX: A41.9 Sepsis, unspecified organism (principal); E43 Unspecified severe protein-calorie malnutrition; R65.21 Severe sepsis with septic shock; J15.9 Unspecified bacterial pneumonia; G93.41 Metabolic encephalopathy; D68.59 Other primary thrombophilia; E87.1 Hypo-osmolality and hyponatremia; D50.9 Iron deficiency anemia, unspecified; D63.8 Anemia in other chronic diseases classified elsewhere; D75.839 Thrombocytosis, unspecified; E83.42 Hypomagnesemia; E78.5 Hyperlipidemia, unspecified; E03.9 Hypothyroidism, unspecified; E88.09 Other disorders of plasma-protein metabolism, not elsewhere classified; F32.A Depression, unspecified; H91.10 Presbycusis, unspecified ear; E87.6 Hypokalemia; E86.1 Hypovolemia; Z74.09 Other reduced mobility; K62.89 Other specified diseases of anus and rectum; Z68.25 Body mass index [BMI] 25.0-25.9, adult; Z96.642 Presence of left artificial hip joint; C76.2 Malignant neoplasm of abdomen; Z20.822 Contact with and (suspected) exposure to COVID-19; R19.09 Other intra-abdominal and pelvic swelling, mass and lump
CPT/HCPCS: 36415; 70450-TC; 71045-TC; 73020; 80048-TC; 80053-TC; 80076-TC; 80202-TC; 81001; 83690-TC; 83735-TC; 84100-TC; 84484-TC; 85025-TC; 86803; 87040-TC; 87081-TC; 87086-TC; 87806; 94799-TC; 97530-TC; A4216; C9803; G0378; J0692; J1756; J2270; J3370; J3475; J7030; J7050; J7060; J7070; Q9967